=== PATIENT | female | born 1965 | race Caucasian/White ===

== ENCOUNTER 2021-05-25 10:56 | Inpatient (IN) | payer OTHER ==
[~2021-05-25] VITALS: Ht 154.9 cm; Wt 97.1 kg
[2021-05-25] VITALS (10 sets, daily range): BP systolic 93–108; BP diastolic 48–72
--- NOTE | 2021-05-25 11:00 | NUR ---
RAMONE [address] [place] [address] C/O LOW O2 SAT 70% ON RA. PATIENT DOES NOT RESPOND TO VERBAL STIMULI BUT WITHDRAWS TO PAINFUL STIMULI. BS 97mg/dl. PLACED COMFORTABLY IN BED. VITALS CHECKED. PATIENT'S SPO2 94 WITH O2 CANNULA AT4LPM.
--- NOTE | 2021-05-25 11:20 | NUR ---
RAPID COVID SWAB DONE AND SENT TO LAB
--- NOTE | 2021-05-25 11:30 | NUR ---
CARBONATOR AT BEDSIDE
--- NOTE | 2021-05-25 11:50 | NUR ---
CXR AT BEDSIDE.
--- NOTE | 2021-05-25 11:50 | NUR ---
COVID PCR SWAB DONE AND SENT TO LAB
[2021-05-25 11:55] LABS: BASOPHILS # (AUTO) 0.2 K/uL (0.0-0.2); BASOPHILS % (AUTO) 1.2 % (0.0-2.0); EOSINOPHILS % (AUTO) 0.2 % (0.0-6.0); HEMATOCRIT 40 % (33-45); HEMOGLOBIN 12.7 g/dL (11.5-14.8); LYMPHOCYTES # (AUTO) 0.4 K/uL (0.8-4.8); LYMPHOCYTES % (AUTO) 2.3 % (20.0-44.0); MEAN CORPUSCULAR HGB CONC 32 g/dl (31.0-36.0); MEAN CORPUSCULAR VOLUME 78 fL (82-100); MONOCYTES # (AUTO) 1.1 K/uL (0.1-1.30); MONOCYTES % (AUTO) 6.4 % (2.0-12.0); NEUTROPHILS # (AUTO) 15.7 K/uL (1.8-8.9); NEUTROPHILS % (AUTO) 89.9 % (43.0-81.0); PLATELET COUNT (AUTO) 596 K/uL (150-450); RED BLOOD CELL COUNT(AUTO) 5.18 MIL/uL (4.0-5.2); WHITE BLOOD COUNT (AUTO) 17.4 K/uL (4.3-11.0)
[2021-05-25] MEDS ORDERED: GLIP10TA11 PO (11:59)
[2021-05-25] MEDS ORDERED: DULO60CA45 PO (11:59)
[2021-05-25] MEDS ORDERED: ACET-868 PO (11:59)
[2021-05-25] MEDS ORDERED: METF-440 PO (11:59)
[2021-05-25] MEDS ORDERED: TIOT18CA3 IH (11:59)
[2021-05-25] MEDS ORDERED: EYEL50FO2 EACHEYE (11:59)
[2021-05-25] MEDS ORDERED: GABA800T11 PO (11:59)
[2021-05-25] MEDS ORDERED: DOCU250C14 PO (11:59)
[2021-05-25] MEDS ORDERED: OXYC-128 PO (11:59)
[2021-05-25] MEDS ORDERED: BISA10SU11 RC (11:59)
[2021-05-25] MEDS ORDERED: INSU100V39 SQ (11:59)
[2021-05-25] MEDS ORDERED: ESCI5TAB PO (11:59)
[2021-05-25] MEDS ORDERED: NEPA3DRO EACHEYE (11:59)
[2021-05-25] MEDS ORDERED: NA P133E RC (11:59)
[2021-05-25] MEDS ORDERED: CLOB15OI3 TP (11:59)
[2021-05-25] MEDS ORDERED: ALBU8.5H8 IH (11:59)
[2021-05-25] MEDS ORDERED: POLY15DR40 EACHEYE (11:59)
[2021-05-25] MEDS ORDERED: MAGN400O6 PO (11:59)
[2021-05-25] MEDS ORDERED: INSU100V10 SQ (11:59)
--- NOTE | 2021-05-25 12:05 | NUR ---
IFC F16 INSERTED, URINE SPECIMEN SENT TO LAB.
[2021-05-25 12:09] LABS: ALANINE AMINOTRANSFERASE 27 U/L (12-78); ALBUMIN 2.5 g/dL (3.4-5.0); ALKALINE PHOSPHATASE 129 U/L (46-116); ASPARTATE AMINOTRANSFERASE 18 U/L (15-37); BILIRUBIN,DIRECT 0.1 mg/dL (0.0-0.2); BILIRUBIN,TOTAL 0.4 mg/dL (0.2-1.0); CALCIUM, SERUM 8.7 mg/dL (8.5-10.1); CARBON DIOXIDE 23 mmol/L (21-32); CHLORIDE 86 mmol/L (98-107); CREATININE 4.5 mg/dL (0.6-1.3); GLUCOSE 124 mg/dL (74-106); TOTAL PROTEIN, SERUM 8.4 g/dL (6.4-8.2); UREA NITROGEN, BLOOD 55 mg/dL (7-18)
--- NOTE | 2021-05-25 12:09 | NUR ---
URINE SAMPLE COLECTED AND SENT TO LAB
--- NOTE | 2021-05-25 12:10 | NUR ---
SEEN BY DR MALIN AT BEDSIDE.
[2021-05-25 12:23] LABS: SODIUM SERUM 119 mmol/L (136-145)
--- NOTE | 2021-05-25 12:23 | NUR ---
CRITICAL LABS RELAYED TO DR. MALIN. NEW ORDERS TO BE CARRIED OUT.
[2021-05-25 12:24] LABS: POTASSIUM 6.7 mmol/L (3.5-5.1)
[2021-05-25] MEDS ORDERED: PIPERACILLIN /TAZOBACTAM 3.375 G in IV D5W 50 ML IV ONE (12:30)
[2021-05-25] MEDS ORDERED: VANCOMYCIN 1 GM in IV D5W 250 ML IV ONE ×2 (12:30→13:00)
[2021-05-25] MEDS ORDERED: IV NS 0.9% 500 ML BAG IV ONE (12:30)
--- NOTE | 2021-05-25 12:39 | NUR ---
NS 500CC BOLUS STARTED
--- NOTE | 2021-05-25 12:45 | NUR ---
IV ANTIBIOTICS STARTED
[2021-05-25 12:51] LABS: BILIRUBIN,URINE NEGATIVE (NEGATIVE); COLOR,URINE YELLOW (YELLOW); LEUKOCYTE ESTERASE ,URINE NEGATIVE (NEGATIVE); NITRITE, URINE NEGATIVE (NEGATIVE); PH,URINE 5.5 (5.0-8.0); PROTEIN,URINE 100 mg/dl (NEGATIVE); UGLUCOSE NEGATIVE (NEGATIVE); UROBILINOGEN,URINE 0.2 EU/dL (0.2)
[2021-05-25] MEDS ORDERED: ONDANSETRON HCL/PF 4 MG/2 ML VIAL IVP PRN (13:00)
[2021-05-25] MEDS ORDERED: ACETAMINOPHEN 650 MG/20.3 ML UDC NG PRN (13:00)
[2021-05-25] MEDS ORDERED: ACETAMINOPHEN 325 MG TABLET PO PRN (13:00)
[2021-05-25] MEDS ORDERED: ZOLPIDEM TARTRATE 5 MG TABLET PO PRN (13:00)
[2021-05-25] MEDS ORDERED: SODIUM POLYSTYRENE SULF. PWD 15 GM UDC PO ONE (13:00)
[2021-05-25] MEDS ORDERED: ACETAMINOPHEN 650 MG/SUPP.RECT RC PRN (13:00)
[2021-05-25] MEDS ORDERED: Calcium Gluconate 1GM/10ML 4.65 MEQ in IV D5W 50 ML IV ONE (13:00)
[2021-05-25] MEDS ORDERED: IV NS 0.9% 1,000 ML BAG IV ONE (13:00)
[2021-05-25 13:03] LABS: BACTERIA,URINE Moderate /HPF (None Seen)
[2021-05-25 13:04] LABS: SQUAMOUS EPITHELIAL CELL,UR Moderate /HPF (None Seen); WBC,URINE 0-2 /HPF (0-3)
--- NOTE | 2021-05-25 13:23 | NUR ---
INFORMED DR MALIN OF 4.5 CREATININE FOR PULMONARY ANGIOGRAM, SAID "IT'S FINE". MADE RADIOLOGY DEPT AWARE
--- NOTE | 2021-05-25 13:45 | NUR ---
SEEN BY MANAGER DISTRIBUTION CENTER DR CARNEY AT ER. RT CALLED TO DO ABG
--- NOTE | 2021-05-25 13:55 | NUR ---
dr portillo called and authorized the patient to stay here
--- NOTE | 2021-05-25 14:00 | NUR ---
ABG DONE AT BEDSIDE.
--- NOTE | 2021-05-25 14:39 | NUR ---
CALLED GERMAIN FROM RADIOLOGY. EXPLAINED TO HIM PATIENT IS REALLY A HARD STICK. I HAVE 2 LINES LEFT WRIST G20 AND RIGHT HAND G20. SPOKE TO DR MALIN HE SAID TO DO THE CT SCAN WITHOUT CONTRAST AT THE MOMENT. MIDLINE NURSE WILL COME 7PM TO PUT LINE ON PATIENT.
--- NOTE | 2021-05-25 14:41 | NUR ---
PATIENT WHEELED OUT VIA GURNEY FOR CT SCAN
--- NOTE | 2021-05-25 14:41 | NUR ---
TANYAED PT TO CT SCAN DEPT.
[2021-05-25 15:19] LABS: ABG BASE EXCESS -6.3 mmol/L; ABG PCO2 56.6 mmHg (35.0-45.0); ABG PO2 106.4 mmHg (75.0-100.0); COHb 0.4 % (0.5-1.5); MetHb 0.5 % (0.0-1.5); O2Hb 96.2 % (94.0-97.0); SITE, ABG Left Radial
--- NOTE | 2021-05-25 15:19 | NUR ---
REPORT GIVEN TO MELODIE CARNEY.
--- NOTE | 2021-05-25 15:38 | NUR ---
RN/ICUADMITTED THIS 55 Y/O FEMALE FROM ER PER ACLS PROTOCOL. DX:ACUTE RESPIRATORY FAILURE, PNA AND ACUTE RENAL FAILURE. ROUTINE ICU ADMISSION CARE INITIATED. PT. COVID 19 PCR PENDING, COVID RAPID IS NEGATIVE, ON CONTACT ISOLATION FOR NOW. PT. IS AWAKE, ORIENTED ONLY TO SELF, NAME,FOLLOWS SIMPLE COMMANDS . EKG SR W/ HR-93/MIN. BP-109/64. ON 4L/NC, SATS.-93%. DENIES PAIN OR DISTRESS, WILL CONTINUE TO MONITOR AND WILL REFER ACCORDINGLY NEEDED. PT. IS A FULL CODE. PT. IS FOR MIDLINE INSERTION. AWAITING FOR PICC RN.
--- NOTE | 2021-05-25 15:53 | NUR ---
TRANSFERRED PATIENT TO ICU
[2021-05-25] MEDS: HEPARIN SODIUM, PORCINE 5000 UNITS/1 ML VIAL SQ SCH (16:57)
--- NOTE | 2021-05-25 17:50 | NUR ---
RN/ICU-DR. PARADA TO SEE PT, ASSESSED PT. SPOKE TO DR VASQUEZ REGARDING POSSIBLILTY OF AIR IN ABDOMEN, WILL COME AND SEE PT TONIGHT.
--- NOTE | 2021-05-25 18:00 | NUR ---
RN/ICU-FOR NGT INSERTION . WILL FOLLOW UP.
[2021-05-25] MEDS: PIPERACILLIN /TAZOBACTAM 3.375 G in IV D5W 50 ML IV SCH ×2 (18:01→23:58)
[2021-05-25] MEDS: IV D5/ 0.9% NACL 1,000 ML IV PRN (18:02)
--- NOTE | 2021-05-25 18:30 | NUR ---
RN/ICU- FOR BMP AT 1900. WILL RELAY RESULT TO HOSPITALIST GYMNASTICS COACH OR INSTRUCTOR.
--- NOTE | 2021-05-25 19:30 | NUR ---
RN NOTE PATIENT RESTING IN BED, ALERT AND ORIENTED X1. ON O2 3L VIA NASAL CANNULA, NO S/S OF RESPIRATORY DISTRESS. DENIES ANY PAIN OR DISCOMFORT. JARA CATH IN PLACE, DRAINING URINE VIA GRAVITY. IV ACCESS ON LEFT WRIST #20 AND RIGHT HAND # 20 PATENT AND INTACT, INFUSING D5NS @ 80ML/HR. NO S/S OF INFILTRATION. BED LOCKED AND IN LOWEST POSITION. CALL LIGHT WITHIN REACH. ALL NEEDS ANTICIPATED.
[2021-05-25 19:38] LABS: CALCIUM, SERUM 7.8 mg/dL (8.5-10.1); CREATININE 4.4 mg/dL (0.6-1.3)
--- NOTE | 2021-05-25 20:23 | NUR ---
RN NOTE RELAYED BMP RESULT TO DR. FRED STEWART, K-6.0 WITH NEW ORDERS RECEIVED NOTED AND CARRIED OUT.
[2021-05-25] MEDS ORDERED: SODIUM POLYSTYRENE SULFONATE 15 G/60 ML BOTTLE PO ONE (20:30)
[2021-05-25] MEDS ORDERED: INSULIN DETEMIR 24 UNIT SQ SCH (22:00)
--- NOTE | 2021-05-25 22:15 | NUR ---
RN NOTE NG TUBE PLACED RIGHT NARE AT 65CM. POSITIVE PLACEMENT CONFIRMED VIA AUSCULTATION, CONFORMED WITH ROMMEL CHARGE NURSE.
[2021-05-25] MEDS ORDERED: DEXTROSE 50%-WATER 50 ML DISP.SYRIN IVP STA (22:58)
[2021-05-25] MEDS: INSULIN GLARGINE, 100 UNIT/ML CARTRIDGE SQ SCH (22:58)
[2021-05-26] VITALS (79 sets, daily range): BP systolic 75–159; BP diastolic 45–88
--- NOTE | 2021-05-26 00:23 | NUR ---
RN NOTE DR. FRED STEWART AWARE OF PATIENT'S BLOOD SUGAR THIS EVENING 56 AND [address] FRED STEWART PATIENT'S BLOOD PRESSURE 85/55, 83/54. WITH NO NEW ORDERS AT THIS TIME. CONTINUE TO MONITOR. CHARGE NURSE ROMMEL AWARE.
[2021-05-26 04:03] LABS: BASOPHILS % (AUTO) 0.2 % (0.0-2.0); EOSINOPHILS % (AUTO) 0.7 % (0.0-6.0); HEMATOCRIT 35 % (33-45); HEMOGLOBIN 10.9 g/dL (11.5-14.8); LYMPHOCYTES # (AUTO) 0.8 K/uL (0.8-4.8); LYMPHOCYTES % (AUTO) 4.6 % (20.0-44.0); MEAN CORPUSCULAR HGB CONC 31 g/dl (31.0-36.0); MEAN CORPUSCULAR VOLUME 78 fL (82-100); MONOCYTES # (AUTO) 1.8 K/uL (0.1-1.30); MONOCYTES % (AUTO) 10.5 % (2.0-12.0); NEUTROPHILS # (AUTO) 14.3 K/uL (1.8-8.9); PLATELET COUNT (AUTO) 468 K/uL (150-450); RED BLOOD CELL COUNT(AUTO) 4.52 MIL/uL (4.0-5.2)
[2021-05-26 04:20] LABS: BILIRUBIN,TOTAL 0.4 mg/dL (0.2-1.0); CALCIUM, SERUM 7.8 mg/dL (8.5-10.1); CREATININE 4.8 mg/dL (0.6-1.3); POTASSIUM 5.3 mmol/L (3.5-5.1); TOTAL PROTEIN, SERUM 6.9 g/dL (6.4-8.2)
[2021-05-26] MEDS ORDERED: DEXTROSE 50%-WATER 50 ML DISP.SYRIN IVP ONE (05:00)
--- NOTE | 2021-05-26 05:49 | NUR ---
RN NOTE PATIENT'S GLUCOSE 50 AND TROPONIN 137.3. RECHECKED BLOOD SUGAR 58. DR. FRED STEWART MADE AWARE WITH NEW ORDERS NOTED AND CARRIED OUT. ALSO MADE MD AWARE OF PATIENTS NA, K, AND URINE OUTPUT 30CC THROUGH OUT SHIFT.
[2021-05-26] MEDS ORDERED: DEXTROSE 50%-WATER 50 ML DISP.SYRIN IVP PRN (06:00)
[2021-05-26] MEDS: PIPERACILLIN /TAZOBACTAM 3.375 G in IV D5W 50 ML IV SCH ×3 (06:16→17:09)
[2021-05-26] MEDS: IV D5/ 0.9% NACL 1,000 ML IV PRN ×2 (06:21→19:28)
--- NOTE | 2021-05-26 07:10 | NUR ---
RN NOTE PATIENT RESTING IN BED, ALERT AND ORIENTED X1. ON O2 2L VIA NASAL CANNULA. POOR OUTPUT FROM JARA CATH, 30CC. IV ACCESS ON LEFT WRIST #20, RIGHT HAND # 20, AND JOVANNY MIDLINE #18 PATENT AND INTACT, INFUSING D5NS @ 80ML/HR. NO S/S OF INFILTRATION. HAD BM X3, KEPT CLEAN AND DRY. TURNED AND REPOSITIONED. BED LOCKED AND IN LOWEST POSITION. CALL LIGHT WITHIN REACH. ENDORSED TO AM SHIFT.
--- NOTE | 2021-05-26 07:10 | NUR ---
RN NOTE RECEIVED PT ON BED ALERT AND ORIENTED X1. ON O2 2L VIA NASAL CANNULA, NO S/S OF RESPIRATORY DISTRESS. DENIES ANY PAIN OR DISCOMFORT. JARA CATH IN PLACE, DRAINING URINE VIA GRAVITY. IV ACCESS ON LEFT WRIST #20 AND RIGHT HAND # 20 PATENT AND INTACT, INFUSING D5NS @ 80ML/HR. NO S/S OF INFILTRATION. NGT ATTACHED TO LIS , NO DRAINAGE NOTED , BED LOCKED AND IN LOWEST POSITION. CALL LIGHT WITHIN REACH. WILL CONTINUE TO MONITOR
[2021-05-26] MEDS: PANTOPRAZOLE 40 MG VIAL IV SCH (08:12)
[2021-05-26] MEDS: HEPARIN SODIUM, PORCINE 5000 UNITS/1 ML VIAL SQ SCH ×2 (08:13→17:06)
[2021-05-26] MEDS: VANCOMYCIN 1 GM in IV D5W 250ml IV SCH (09:24)
[2021-05-26 12:04] LABS: THYROID STIMULATING HORMONE 0.766 uIU/mL (0.358-3.74)
--- NOTE | 2021-05-26 12:04 | NUR ---
RN NOTES BG 48 , NO SIGNS AND SYMPTOMS OF HYPOGLYCEMIA NOTED , SBP IN 80'S , DR JERONIMO NOTIFIED , D50 IV x 1 AMP AND LEVO DRIP ORDERED , CONTINUE TO MONITOR.
[2021-05-26 12:12] LABS: ABG BASE EXCESS -9.8 mmol/L; ABG OXYGEN SATURATION 95.6 % (92.0-98.5); ABG PCO2 52.7 mmHg (35.0-45.0); ABG PH 7.169 (7.350-7.450); ABG PO2 86.7 mmHg (75.0-100.0); AaDO2 50.8 mmHg; COHb 1.2 % (0.5-1.5); MetHb 0.2 % (0.0-1.5); O2Hb 94.3 % (94.0-97.0); SITE, ABG Right Radial; VENT MODE, BG 2 liters nasal cannula
[2021-05-26] MEDS: BLOOD SUGAR DIAGNOSTIC 1 EACH STRIP IN SCH ×2 (12:52→17:12)
[2021-05-26 13:01] LABS: CALCIUM, SERUM 7.3 mg/dL (8.5-10.1); CREATININE 5.3 mg/dL (0.6-1.3); POTASSIUM 5.2 mmol/L (3.5-5.1)
[2021-05-26] MEDS: NOREPINEPHRINE 8 MG in IV NS 0.9% 242 ML IV PRN (13:39)
[2021-05-26 14:59] LABS: ABG BASE EXCESS -10.1 mmol/L; ABG OXYGEN SATURATION 92.3 % (92.0-98.5); ABG PCO2 62.4 mmHg (35.0-45.0); ABG PH 7.119 (7.350-7.450); COHb 0.8 % (0.5-1.5); MetHb 0.3 % (0.0-1.5); O2Hb 91.3 % (94.0-97.0); SITE, ABG Left Radial; VENT MODE, BG 18/5 r15 28%
--- NOTE | 2021-05-26 15:35 | NUR ---
RN NOTES PT IS LETHARGIC , DOES NOT FOLLOW COMMAND, DR CARNEY NOTIFIED REGARDING ABG RESULTS , ORDER RECEIVED TO INTUBATE PT . CONTINUE TO MONITOR.
--- NOTE | 2021-05-26 15:41 | NUR ---
RT PATIENT ORALLY INTUBATED WITH 7.5 ETT SECURED AT 23CM AT THE LIP. VENT SETTINGS SET PER DR CARNEY. POSITIVE CO2 DETECTOR COLOR CHANGE. BILAT BREATH SOUNDS HEARD. BILAT CHEST RISE NOTED. AMBU BAG AT HOB Addendum: 05/26/21 at 1545 by HIRAM BOSS RT Amended: Links added.
--- NOTE | 2021-05-26 15:50 | NUR ---
RN NOTES DR JERONIMO AT THE BEDSIDE, R NECK HD CATH INSERTED BY DR JERONIMO, CONTINUE TO MONITOR .
[2021-05-26] MEDS: PROPOFOL 100 ML IV PRN ×2 (15:59→22:21)
--- NOTE | 2021-05-26 16:11 | NUR ---
RT PER MD ORDER ETT PULLED BACK 2CM AND SECURED AT 21CM TOP LIP. Addendum: 05/26/21 at 1611 by HIRAM BOSS RT Amended: Links added.
[2021-05-26 17:06] LABS: ABG BASE EXCESS -9.2 mmol/L; ABG PCO2 30.8 mmHg (35.0-45.0); ABG PH 7.324 (7.350-7.450); ABG PO2 107.8 mmHg (75.0-100.0); AaDO2 69.9 mmHg; MetHb 0.3 % (0.0-1.5); O2Hb 96.7 % (94.0-97.0); SITE, ABG Right Radial
[2021-05-26] MEDS ORDERED: ROCURONIUM BROMIDE 50 MG/5 ML IV ONE (18:15)
[2021-05-26] MEDS ORDERED: ETOMIDATE 2 MG/ML VIAL IV ONE (18:15)
--- NOTE | 2021-05-26 18:34 | NUR ---
RN NOTES PT REMAINS INTUBATED AND SEDATED , ON PROPOFOL AT 15MCG/KG/MIN, TOLERATED VENT SETTING WELL, NO DISTESS NOTED, ON TELE SR HR IN 80'S , NGT TO LIS, LEVO AT .04 MCG/KG/MIN FOR BP SUPPORT, IVF D5NS AT 125CC/HR RUNNING VIA R UPPER ARM MIDLINE . SR UP x3, CALL LIGHT WITHIN EASY REACH, BED LOCKED AND IN LOWEST POSITION, WILL ENDORSE TO TIME STUDY ENGINEER NURSE FOR CONTINUITY OF CARE .
[2021-05-26] MEDS: INSULIN GLARGINE, 100 UNIT/ML CARTRIDGE SQ SCH (21:57)
[2021-05-27] VITALS (95 sets, daily range): BP systolic 80–152; BP diastolic 22–81
[2021-05-27] MEDS: PIPERACILLIN /TAZOBACTAM 3.375 G in IV D5W 50 ML IV SCH ×5 (00:03→23:58)
[2021-05-27] MEDS: BLOOD SUGAR DIAGNOSTIC 1 EACH STRIP IN SCH ×5 (00:05→23:37)
[2021-05-27] MEDS: PROPOFOL 100 ML IV PRN ×5 (03:48→21:13)
[2021-05-27] MEDS: IV D5/ 0.9% NACL 1,000 ML IV PRN ×3 (03:49→21:12)
[2021-05-27 05:10] LABS: BASOPHILS # (AUTO) 0.1 K/uL (0.0-0.2); BASOPHILS % (AUTO) 0.5 % (0.0-2.0); EOSINOPHILS % (AUTO) 1.2 % (0.0-6.0); HEMATOCRIT 35 % (33-45); HEMOGLOBIN 10.9 g/dL (11.5-14.8); LYMPHOCYTES # (AUTO) 1.4 K/uL (0.8-4.8); LYMPHOCYTES % (AUTO) 5.8 % (20.0-44.0); MEAN CORPUSCULAR HGB CONC 31 g/dl (31.0-36.0); MEAN CORPUSCULAR VOLUME 77 fL (82-100); MONOCYTES # (AUTO) 2.7 K/uL (0.1-1.30); MONOCYTES % (AUTO) 11.3 % (2.0-12.0); NEUTROPHILS # (AUTO) 19.4 K/uL (1.8-8.9); NEUTROPHILS % (AUTO) 81.2 % (43.0-81.0); PLATELET COUNT (AUTO) 515 K/uL (150-450); RED BLOOD CELL COUNT(AUTO) 4.53 MIL/uL (4.0-5.2); WHITE BLOOD COUNT (AUTO) 23.9 K/uL (4.3-11.0)
[2021-05-27 05:19] LABS: CALCIUM, SERUM 7.2 mg/dL (8.5-10.1); CREATININE 4.6 mg/dL (0.6-1.3); MAGNESIUM 1.8 mg/dL (1.8-2.4); PHOSPHORUS 4.8 mg/dL (2.5-4.9); POTASSIUM 3.5 mmol/L (3.5-5.1)
[2021-05-27] MEDS: NOREPINEPHRINE 8 MG in IV NS 0.9% 242 ML IV PRN (06:44)
[2021-05-27 08:48] LABS: ABG OXYGEN SATURATION 96.8 % (92.0-98.5); ABG PCO2 28.8 mmHg (35.0-45.0); ABG PH 7.385 (7.350-7.450); ABG PO2 97.1 mmHg (75.0-100.0); COHb 0.6 % (0.5-1.5); MetHb 0.1 % (0.0-1.5); O2Hb 96.1 % (94.0-97.0); SITE, ABG Right Radial
[2021-05-27] MEDS: PANTOPRAZOLE 40 MG VIAL IV SCH (08:52)
[2021-05-27] MEDS: HEPARIN SODIUM, PORCINE 5000 UNITS/1 ML VIAL SQ SCH ×2 (08:56→16:46)
--- NOTE | 2021-05-27 19:05 | NUR ---
NO SIGNIFICANT CHANGES NOTED AT THIS TIME; PT. COMFORTABLY ON BED;ENDORSED TO NIK-MELODIE FOR CONTINUITY OF CARE.
--- NOTE | 2021-05-27 20:00 | NUR ---
ICU NOTES Received patient sedated and intubated to mechanical vent on AC modes.DX: Acte RESPIRATORY FAILURE,PNA,ACUTE RENAL FAILURE.Sedated on Diprivan gtt at 35 mcg.SR 60's on Levophed gtt at 0.04 mcg for BP support and will titrate accordingly.NPO with R ngt to LIS no output at this time.IVF infusing well.FC to gravity. No acute distress noted.Turned and repositioned.
[2021-05-27] MEDS: INSULIN GLARGINE, 100 UNIT/ML CARTRIDGE SQ SCH (22:01)
[2021-05-28] VITALS (75 sets, daily range): BP systolic 78–148; BP diastolic 41–75
[2021-05-28] MEDS: NOREPINEPHRINE 8 MG in IV NS 0.9% 242 ML IV PRN (00:26)
[2021-05-28] MEDS: PROPOFOL 100 ML IV PRN ×2 (01:51→06:36)
[2021-05-28 04:09] LABS: BASOPHILS % (AUTO) 0.3 % (0.0-2.0); EOSINOPHILS % (AUTO) 2.4 % (0.0-6.0); HEMATOCRIT 32 % (33-45); HEMOGLOBIN 10.1 g/dL (11.5-14.8); LYMPHOCYTES # (AUTO) 1.4 K/uL (0.8-4.8); LYMPHOCYTES % (AUTO) 7.6 % (20.0-44.0); MEAN CORPUSCULAR HGB CONC 31 g/dl (31.0-36.0); MEAN CORPUSCULAR VOLUME 76 fL (82-100); MONOCYTES # (AUTO) 2.3 K/uL (0.1-1.30); MONOCYTES % (AUTO) 12.6 % (2.0-12.0); NEUTROPHILS # (AUTO) 14.1 K/uL (1.8-8.9); NEUTROPHILS % (AUTO) 77.1 % (43.0-81.0); PLATELET COUNT (AUTO) 374 K/uL (150-450); RED BLOOD CELL COUNT(AUTO) 4.26 MIL/uL (4.0-5.2); WHITE BLOOD COUNT (AUTO) 18.3 K/uL (4.3-11.0)
[2021-05-28 04:12] LABS: CALCIUM, SERUM 7.2 mg/dL (8.5-10.1); MAGNESIUM 1.7 mg/dL (1.8-2.4); PHOSPHORUS 4.4 mg/dL (2.5-4.9); POTASSIUM 2.9 mmol/L (3.5-5.1)
[2021-05-28] MEDS: BLOOD SUGAR DIAGNOSTIC 1 EACH STRIP IN SCH ×3 (05:33→17:52)
[2021-05-28] MEDS: PIPERACILLIN /TAZOBACTAM 3.375 G in IV D5W 50 ML IV SCH ×3 (05:33→17:47)
[2021-05-28] MEDS: IV D5/ 0.9% NACL 1,000 ML IV PRN ×3 (05:54→23:36)
--- NOTE | 2021-05-28 06:15 | NUR ---
ICU NOTES Patient resting in no acute distress.Vital signs remains stable..SR.Tolerating vent settings.Diprivan gtt infusing at 35 mcg,Levophed infusing at 0.04 mcg.AM care done.Blood sugar monitored Q 6Hhrs. No coverage ordered.will endorse to day shift for further care and management.
--- NOTE | 2021-05-28 07:15 | NUR ---
STAFF ACCOUNTANT Bedside report taken from [facility] nurse Phuc SEWELL. pt sedated and intubated. pt perrla. pt does not open eyes or follow commands. pt w/d bue and ble to painful stimuli. pt has ngt to low intermittent suction. pt NSR on monitor, sbp wnl. pt lung sounds diminished. abdomen soft rounded , bowel sounds present. pt has salvador intact and draining clear yellow urine. skin check done, wounds assessed. all lines traced all drips verified. safety meaures in place. will continue to monitor.
[2021-05-28] MEDS: PANTOPRAZOLE 40 MG VIAL IV SCH (08:12)
[2021-05-28] MEDS: HEPARIN SODIUM, PORCINE 5000 UNITS/1 ML VIAL SQ SCH ×2 (08:13→17:47)
--- NOTE | 2021-05-28 08:45 | NUR ---
SKIP HOIST OPERATOR Dr Leigh at bedside assessing pt and updated on pt status. md aware that pt k 2.9 and mg 1.7, new verbal orders entered per md and verified with charge nurse Lory SEWELL. sedation vacation order today per md. no other orders at this time.
[2021-05-28] MEDS: VANCOMYCIN 1 GM in IV D5W 250ml IV SCH (09:00)
[2021-05-28] MEDS ORDERED: DC PROPOFOL WHEN EXTUBATED XX PRN (09:00)
--- NOTE | 2021-05-28 09:08 | NUR ---
SHREDDED FILLER MACHINE WRAPPER LAYER Spoke to Destiny from pharmacy, informed that vanco trough 21, hold 9 am dose of vancomycin at this time per pharmacy. charge nurse Lory bowen.
[2021-05-28] MEDS: Magnesium 1GM/D5W 100ML PREMIX 100 ML IV SCH ×2 (09:30→10:12)
--- NOTE | 2021-05-28 09:48 | NUR ---
PRODUCT INSPECTION SUPERVISOR Pt had BM x1 bathed and cleaned. skin check done with Anitha SEWELL, no new wounds noted. Propofol off, sedation vacation started. safety meaures in place. will continue to monitor.
--- NOTE | 2021-05-28 10:33 | NUR ---
HEALTH AND HUMAN PERFORMANCE PROFESSOR Dr Leigh at bedside assessing pt and updated on pt status. aware that pt off sedation, ok to wean, Nuria MCFARLAND aware. weaning pending.
[2021-05-28] MEDS: POTASSIUM CL. PREMIX PERIPHER. 50 ML IV SCH ×3 (11:02→12:59)
[2021-05-28 11:30] LABS: ABG BASE EXCESS -5.8 mmol/L; ABG OXYGEN SATURATION 97.4 % (92.0-98.5); ABG PCO2 33.1 mmHg (35.0-45.0); ABG PH 7.369 (7.350-7.450); COHb 0.2 % (0.5-1.5); MetHb 0.2 % (0.0-1.5); PEEP,BG 5 cm H2O; SITE, ABG Right Radial; VENT MODE, BG SIMV 4 PSV 15
--- NOTE | 2021-05-28 11:35 | NUR ---
FREQUENCY CHECKER ABG completed, pt tolerating weaning. Dr Leigh at bedside. Pt extubated per MD order. pt awake, alert and oriented and talking, follows commands. pt placed on 3 L n/c. pt tolerating well. paul wrist restraints removed. vitals stable. will continue to monitor.
--- NOTE | 2021-05-28 11:35 | NUR ---
PT EXTUBATED PER MD ORDER. PLACED ON 3LP, N/C B/S EQUA. PT ABLE TO FALLOW COMMANDS
[2021-05-28 16:56] LABS: POTASSIUM 3.8 mmol/L (3.5-5.1)
[2021-05-28 16:57] LABS: CREATININE 3.4 mg/dL (0.6-1.3)
--- NOTE | 2021-05-28 19:08 | NUR ---
QUALITY COMPLIANCE COORDINATOR Bedside report given to [facility] nurse Wesley SEWELL. Pt awake, alert, on 3 L n/c tolerating well and resting comfortable in bed. all lines traced. all drips verified. pt clean and dry. safety measures in place. no signs of acute distress at this time.
--- NOTE | 2021-05-28 19:30 | NUR ---
RN NOTES RECEIVED CARE OF PATIENT FROM AM NURSE WHILE PATIENT IN BED, A/O X4, ABLE TO MAKE NEEDS KNOWN, PATIENT IN NO DISCOMFORT OR PAIN AT THIS TIME. PATIENT ON ROOM AIR, O2 SAT 96%, BREATHING EVEN AND UNLABORED. PATIENT ON TELE MONITOR SHOWING NSR WITH HR OF 71, NO DISTRESS NOTED. JARA CATH PATENT, DARNING YELLOW URINE. NGT NOTED, PATENT AND POSITIVE PLACEMENT CONFIRMED BY AUSCULTATION, WITH SUCTION ORDERED. SAFETY MEASURES IMPLEMENTED PER HOSPITAL PROTOCOLS. WILL CONTINUE TO MONITOR PATIENT.
[2021-05-28] MEDS: INSULIN GLARGINE, 100 UNIT/ML CARTRIDGE SQ SCH (23:00)
[2021-05-29] VITALS (95 sets, daily range): BP systolic 78–156; BP diastolic 46–93
[2021-05-29] MEDS: NOREPINEPHRINE 8 MG in IV NS 0.9% 242 ML IV PRN (00:06)
[2021-05-29] MEDS: PIPERACILLIN /TAZOBACTAM 3.375 G in IV D5W 50 ML IV SCH ×5 (00:07→23:43)
[2021-05-29] MEDS ORDERED: NOREPINEPHRINE 8MG/250ML RTU 250 ML IV ONE (00:09)
[2021-05-29] MEDS: BLOOD SUGAR DIAGNOSTIC 1 EACH STRIP IN SCH ×4 (00:22→17:22)
[2021-05-29 04:38] LABS: BASOPHILS % (AUTO) 0.2 % (0.0-2.0); EOSINOPHILS % (AUTO) 2.3 % (0.0-6.0); HEMATOCRIT 32 % (33-45); HEMOGLOBIN 9.8 g/dL (11.5-14.8); LYMPHOCYTES # (AUTO) 0.7 K/uL (0.8-4.8); LYMPHOCYTES % (AUTO) 4.3 % (20.0-44.0); MEAN CORPUSCULAR HGB CONC 31 g/dl (31.0-36.0); MEAN CORPUSCULAR VOLUME 77 fL (82-100); MONOCYTES # (AUTO) 1.8 K/uL (0.1-1.30); MONOCYTES % (AUTO) 11.8 % (2.0-12.0); NEUTROPHILS # (AUTO) 12.6 K/uL (1.8-8.9); NEUTROPHILS % (AUTO) 81.4 % (43.0-81.0); PLATELET COUNT (AUTO) 328 K/uL (150-450); RED BLOOD CELL COUNT(AUTO) 4.08 MIL/uL (4.0-5.2); WHITE BLOOD COUNT (AUTO) 15.5 K/uL (4.3-11.0)
[2021-05-29 05:08] LABS: CALCIUM, SERUM 7.1 mg/dL (8.5-10.1); CREATININE 3.6 mg/dL (0.6-1.3); MAGNESIUM 2.1 mg/dL (1.8-2.4); PHOSPHORUS 6.1 mg/dL (2.5-4.9); POTASSIUM 3.3 mmol/L (3.5-5.1)
--- NOTE | 2021-05-29 07:00 | NUR ---
RN NOTES RECEIVED PT ON BED, A/Ox2-3, FOLLOWS COMMAND, ABLE TO MAKE NEEDS KNOWN, ON 3L O2 N/C , O2 SAT WNL, PATIENT ON TELE MONITOR SHOWING NSR WITH HR OF 70'S, NO DISTRESS NOTED. JARA CATH PATENT, DRAINING YELLOW URINE. NGT NOTED TO LIS , SAFETY MEASURES IMPLEMENTED PER HOSPITAL PROTOCOLS. SR UP x3, CALL LIGHT WITHIN EASY REACH, WILL CONTINUE TO MONITOR PATIENT.
--- NOTE | 2021-05-29 07:16 | NUR ---
RN NOTES ENDORSED CARE OF PATIENT TO AM NURSE WHILE PATIENT IN BED, A/O X4, ABLE TO MAKE NEEDS KNOWN. ALL PATIENT NEEDS MET THROUGHOUT SHIFT. PATIENT ON 3 L/MIN O2 THERAPY VIA NC, O2 SAT 98%, BREATHING EVEN AND UNLABORED. PATIENT CURRENTLY ON LEVO DRIP AT 0.02 MCG/KG/MIN, VITAL SIGNS REMAIN WITHIN ORDERED LIMITS. ALL DUE MEDS GIVEN. ALL SAFETY MEASURES IMPLEMENTED PER HOSPITAL PROTOCOLS. ENDORSED TO AM NURSE FOR ARAVIND.
[2021-05-29] MEDS ORDERED: POTASSIUM CHLORIDE 20 MEQ POWDER PACKET NG SCH (08:00)
[2021-05-29] MEDS: HEPARIN SODIUM, PORCINE 5000 UNITS/1 ML VIAL SQ SCH ×2 (08:07→16:58)
[2021-05-29] MEDS: PANTOPRAZOLE 40 MG VIAL IV SCH (08:07)
[2021-05-29] MEDS: POTASSIUM CL. PREMIX PERIPHER. 50 ML IV SCH ×4 (08:07→11:47)
[2021-05-29] MEDS: IV D5/ 0.9% NACL 1,000 ML IV PRN ×2 (09:43→23:58)
[2021-05-29] MEDS ORDERED: NOREPINEPHRINE 8 MG in IV NS 0.9% 242 ML IV PRN (11:00)
[2021-05-29] MEDS ORDERED: DEXTROSE 50%-WATER 50 ML DISP.SYRIN IV PRN (12:00)
[2021-05-29] MEDS ORDERED: BLOOD SUGAR DIAGNOSTIC 1 EACH STRIP IN SCH (12:00)
[2021-05-29] MEDS: INSULIN REGULAR, HUMAN 100 UNIT/ML 3 ML VIAL SQ PRN ×2 (12:14→17:15)
--- NOTE | 2021-05-29 13:00 | NUR ---
RN NOTES NGT TO LIS , PT IS VERY SENSITIVE TO LEVO , LEVO DRIP AT .01 MCG/KG/MIN, CONTINUE TO MONITOR. .
[2021-05-29] MEDS ORDERED: DIATR MEGLU/DIATRIZOATE SODIUM 30 ML BOTTLE (GASTROGRAPHIN) ONE (18:02)
--- NOTE | 2021-05-29 18:15 | NUR ---
RN NOTES PT REMAINS ON LEVO AT .01 MCG/KG/MIN. PO CONTRAST GIVEN VIA NGT. NO DISTESS NOTED, PT WAITING FOR CT OF ABD TO BE DONE, NO SIGNIFICANT CHANGES NOTED ON THIS SHIFT , WILL ENDORSE TO BUILDING MATERIALS SALES ATTENDANT NURSE FOR CONTINUITY OF CARE .
--- NOTE | 2021-05-29 19:31 | NUR ---
RN NOTES RECEIVED CARE OF PATIENT FROM AM NURSE WHILE PATIENT IN BED, A/O X4, ABLE TO MAKE NEEDS KNOWN, PATIENT IN NO DISCOMFORT OR PAIN AT THIS TIME. PATIENT ON O2 THERAPY VIA NC AT 3L/MIN, O2 SAT 99%, BREATHING EVEN AND UNLABORED. PATIENT ON TELE MONITOR SHOWING NSR WITH HR OF 78, NO DISTRESS NOTED. JARA CATH PATENT, DARNING YELLOW URINE. PATIENT ON LEVO RUNNING AT 0.01 MCG/KG/MIN, LATEST BP IS 101/60, PATIENT IN NO DISTRESS. PATIENT AWAITING TRANSFER TO CT SCAN. SAFETY MEASURES IMPLEMENTED PER HOSPITAL PROTOCOLS. WILL CONTINUE TO MONITOR PATIENT.
--- NOTE | 2021-05-29 20:30 | NUR ---
RN NOTES PATIENT SENT AND RETURNED FROM CT SCAN IN STABLE CONDITIONS VIA ACLS PROTOCOLS. PATIENT IS CURRENTLY IN BED, A/O X4, WITH NO SIGNIFICANT NURSING FINDINGS AFTER RETURNING FROM CT SCAN. ALL IMMEDIATE PATIENT NEEDS MET. WILL CONTINUE TO MONITOR.
[2021-05-29] MEDS: INSULIN GLARGINE, 100 UNIT/ML CARTRIDGE SQ SCH (22:53)
[2021-05-30] VITALS (85 sets, daily range): BP systolic 81–140; BP diastolic 39–95
[2021-05-30] MEDS: INSULIN REGULAR, HUMAN 100 UNIT/ML 3 ML VIAL SQ PRN ×3 (00:42→23:18)
[2021-05-30] MEDS: BLOOD SUGAR DIAGNOSTIC 1 EACH STRIP IN SCH ×5 (00:43→23:14)
[2021-05-30 04:36] LABS: BASOPHILS % (AUTO) 0.2 % (0.0-2.0); EOSINOPHILS % (AUTO) 1.2 % (0.0-6.0); HEMATOCRIT 32 % (33-45); HEMOGLOBIN 9.6 g/dL (11.5-14.8); LYMPHOCYTES # (AUTO) 0.8 K/uL (0.8-4.8); LYMPHOCYTES % (AUTO) 4.4 % (20.0-44.0); MEAN CORPUSCULAR HGB CONC 31 g/dl (31.0-36.0); MEAN CORPUSCULAR VOLUME 79 fL (82-100); MONOCYTES # (AUTO) 2.2 K/uL (0.1-1.30); MONOCYTES % (AUTO) 12.4 % (2.0-12.0); NEUTROPHILS # (AUTO) 14.6 K/uL (1.8-8.9); NEUTROPHILS % (AUTO) 81.8 % (43.0-81.0); PLATELET COUNT (AUTO) 299 K/uL (150-450); RED BLOOD CELL COUNT(AUTO) 3.99 MIL/uL (4.0-5.2); WHITE BLOOD COUNT (AUTO) 17.8 K/uL (4.3-11.0)
[2021-05-30 04:57] LABS: CALCIUM, SERUM 7.3 mg/dL (8.5-10.1); MAGNESIUM 2.2 mg/dL (1.8-2.4); PHOSPHORUS 7.7 mg/dL (2.5-4.9); POTASSIUM 4.2 mmol/L (3.5-5.1)
[2021-05-30] MEDS: PIPERACILLIN /TAZOBACTAM 3.375 G in IV D5W 50 ML IV SCH (05:36)
--- NOTE | 2021-05-30 06:45 | NUR ---
RN NOTES PATIENT REMAINS IN BED, SLEEPING, WAKES UP TO NAME. PATIENT A/O X4, ABLE TO MAKE NEEDS KNOWN. ALL PATIENT NEEDS MET THROUGHOUT SHIFT. ALL DUE MED GIVEN. PATIENT REMAINS ON LEVO DRIP RUNNING AT 0.01 MCG/KG/MIN, VITAL SINGS REMAIN WITHIN ORDERED PARAMETERS. NO SIGNIFICANT FINDINGS UPON ALL NURSING ASSESSMENTS. ALL SAFETY MEASURES IMPLEMENTED THROUGHOUT SHIFT ACCORDING TO HOSPITAL PROTOCOLS. WILL ENDORSE TO AM NURSE FOR CONTINUITY OF CARE.
--- NOTE | 2021-05-30 08:00 | NUR ---
RN NOTES PATIENT RECEIVED IN THE BED A/A/OX3, ON E15E-YY-93%, HR- 70. PATIENT REFUSED PAIN, NGT INTERMITTENT SUCTIONING , NO OUTPUT AT THIS TIME. INFUSING LEVOPHED 0.01 MCG/KG/HR, AND D5NS @125ML/HR ON JOVANNY MIDLINE INTACT. PATIENT OBESE, DISTENDED ABDOMEN. BED BOUND, JARA DRAINING LOW OUTPUT. ASSIST TURN AND REPOSTION Q 2 HR, AM MEDICATION ADMINISTERED. ASSIST TURN AND REPOSTION. PER Dr RYAN ORDER PATIENT WILL TAKE SMALL AMOUNT OF ICE CHIPS PO. ORDER TAKEN AND CARRIED OUT. NEEDS ATTENDED AND ANTICIPATED. CALL LIGHT WITHIN TO REACH. WILL FOLLOW UP.
[2021-05-30] MEDS: PANTOPRAZOLE 40 MG VIAL IV SCH (09:09)
[2021-05-30] MEDS: HEPARIN SODIUM, PORCINE 5000 UNITS/1 ML VIAL SQ SCH ×2 (09:12→16:47)
[2021-05-30] MEDS: IV D5/ 0.9% NACL 1,000 ML IV PRN ×2 (09:49→18:15)
--- NOTE | 2021-05-30 10:30 | NUR ---
rn notes patient getting hemodialysis at this time.
--- NOTE | 2021-05-30 12:51 | NUR ---
RN NOTES FINISHED HD AT THIS TIME OUTPUT WAS 2000ML. BP109/57, P-77, R-21. WILL FOLLOW UP.
[2021-05-30] MEDS: PIPERACILLIN /TAZOBACTAM 2.25 G in IV D5W 50 ML IV SCH ×2 (12:57→21:30)
[2021-05-30] MEDS ORDERED: VANCOMYCIN 1 GM in IV D5W 250 ML IV ONE (17:00)
--- NOTE | 2021-05-30 18:30 | NUR ---
rn notes patient pm care done, vss, due medication administered. assist turn and reposition q 2 hr. patient still on ngt suction, ok for ice chips. patient refused pain, redness perineal area. call light within to reach. endorsed oncoming nurse follow plan of care.
--- NOTE | 2021-05-30 19:30 | NUR ---
REFRIGERATION TECHNICIAN LEVOPHED TITRATED OFF BP 93/69
[2021-05-30] MEDS ORDERED: INSULIN GLARGINE, 100 UNIT/ML CARTRIDGE SQ ONE (23:06)
[2021-05-30] MEDS: INSULIN GLARGINE, 100 UNIT/ML CARTRIDGE SQ SCH (23:17)
[2021-05-31] VITALS (49 sets, daily range): BP systolic 90–119; BP diastolic 46–81
[2021-05-31] MEDS: IV D5/ 0.9% NACL 1,000 ML IV PRN ×3 (02:29→23:50)
[2021-05-31] MEDS: PIPERACILLIN /TAZOBACTAM 2.25 G in IV D5W 50 ML IV SCH ×3 (04:00→21:34)
[2021-05-31 05:40] LABS: BASOPHILS # (AUTO) 0.1 K/uL (0.0-0.2); BASOPHILS % (AUTO) 0.5 % (0.0-2.0); EOSINOPHILS % (AUTO) 1.7 % (0.0-6.0); HEMATOCRIT 31 % (33-45); HEMOGLOBIN 9.5 g/dL (11.5-14.8); LYMPHOCYTES # (AUTO) 0.7 K/uL (0.8-4.8); LYMPHOCYTES % (AUTO) 5.2 % (20.0-44.0); MEAN CORPUSCULAR HGB CONC 30 g/dl (31.0-36.0); MEAN CORPUSCULAR VOLUME 79 fL (82-100); MONOCYTES # (AUTO) 1.2 K/uL (0.1-1.30); MONOCYTES % (AUTO) 9.5 % (2.0-12.0); NEUTROPHILS # (AUTO) 10.7 K/uL (1.8-8.9); NEUTROPHILS % (AUTO) 83.1 % (43.0-81.0); PLATELET COUNT (AUTO) 254 K/uL (150-450); RED BLOOD CELL COUNT(AUTO) 3.99 MIL/uL (4.0-5.2); WHITE BLOOD COUNT (AUTO) 12.9 K/uL (4.3-11.0)
[2021-05-31] MEDS: BLOOD SUGAR DIAGNOSTIC 1 EACH STRIP IN SCH ×4 (06:12→23:20)
[2021-05-31 06:20] LABS: CALCIUM, SERUM 7.5 mg/dL (8.5-10.1); CREATININE 3.1 mg/dL (0.6-1.3); MAGNESIUM 1.9 mg/dL (1.8-2.4); POTASSIUM 3.8 mmol/L (3.5-5.1)
--- NOTE | 2021-05-31 08:00 | NUR ---
rn notes Seen patient on o2-4lnc, and ngt intermittent suction, patient awake, refused pain, sign consent form for CT. Walker draining small amount of urine. patient ok for ice chips. due medication administered, assist turn and reposition q 2 hr. will follow up.
[2021-05-31] MEDS: PANTOPRAZOLE 40 MG VIAL IV SCH (08:53)
[2021-05-31] MEDS: HEPARIN SODIUM, PORCINE 5000 UNITS/1 ML VIAL SQ SCH ×2 (08:54→17:01)
[2021-05-31] MEDS: FERROUS SULFATE UDC 300 MG/5 ML UDC PO SCH (08:59)
--- NOTE | 2021-05-31 11:20 | NUR ---
RN NOTES US OF ABDOMEN IS DINE ON BEDSIDE.
[2021-05-31] MEDS ORDERED: IOHEXOL-300 100 ML VIAL IV ONE (14:48)
[2021-05-31] MEDS ORDERED: IV NS 0.9% 250 ML IV ONE (14:48)
--- NOTE | 2021-05-31 15:00 | NUR ---
RN NOTES CTA DONE WITH CONTRAST, SEEN HOSPITALIST Dr BAI REMOVED NGT AT THIS TIME. PATIENT CCHO 60G DIET.
--- NOTE | 2021-05-31 18:30 | NUR ---
RN NOTES ASSIST PATIENT EATING, TOLERATED DINNER 15%, VSS, NO ACUTE RESPIRATORY DISTRESS, O2-4L, JARA OUTPUT WAS 100ML. DUE MEDICATION ADMINISTERED, PM CARE DONE, ASSIST TURN AND REPOSITION Q 2 HR. ENDORSED ONCOMING NURSE ARAVIND.
--- NOTE | 2021-05-31 20:35 | NUR ---
COSTUMER ASSISTANT NOTES: RECEIVED REPORT FROM ESE SEWELL. RECEIVED PT IN BED, AWAKE, A/OX4, VERBALLY RESPONSIVE. ON O2 AT 3L/MIN VIA N/C AND PT TOLERATED WELL. IV ACCESS JOVANNY MIDLINE, LT WRIST #20G INTACT AND PATENT. RIJ HD CATH INTACT AND PATENT AND COVERED WITH DRY DRESSING. NO BLEEDING NOTED. NO C/O PAIN OR DISCOMFORT. NO ACUTE DISTRESS. JARA CATHETER INTACT WITH YELLOWISH/CLEAR URINE. ONLY 50CC OF URINE NOTED. ALL SAFETY MEASURES IN PLACE. BED IN LOWEST POSITION AND LOCKED. SIDE RAILS UP X3, PLACE CALL LIGHT WITH IN REACH. WILL CONTINUE TO MONITOR
[2021-05-31] MEDS: INSULIN GLARGINE, 100 UNIT/ML CARTRIDGE SQ SCH (22:00)
--- NOTE | 2021-05-31 23:10 | NUR ---
RN NOTES: PT'S BLOOD SUGAR 98. LANTUS NOT ADMINISTERED. NO S/S OF HYPER/HYPOGLYCEMIA. WILL CONTINUE TO MONITOR.
[2021-06-01] VITALS (31 sets, daily range): BP systolic 82–103; BP diastolic 49–70
[2021-06-01 04:42] LABS: BASOPHILS # (AUTO) 0.1 K/uL (0.0-0.2); BASOPHILS % (AUTO) 0.4 % (0.0-2.0); EOSINOPHILS % (AUTO) 0.9 % (0.0-6.0); HEMATOCRIT 34 % (33-45); HEMOGLOBIN 10.4 g/dL (11.5-14.8); LYMPHOCYTES # (AUTO) 0.6 K/uL (0.8-4.8); LYMPHOCYTES % (AUTO) 3.4 % (20.0-44.0); MEAN CORPUSCULAR HGB CONC 30 g/dl (31.0-36.0); MEAN CORPUSCULAR VOLUME 80 fL (82-100); MONOCYTES # (AUTO) 1.1 K/uL (0.1-1.30); MONOCYTES % (AUTO) 6.6 % (2.0-12.0); NEUTROPHILS # (AUTO) 15.1 K/uL (1.8-8.9); NEUTROPHILS % (AUTO) 88.7 % (43.0-81.0); PLATELET COUNT (AUTO) 258 K/uL (150-450); WHITE BLOOD COUNT (AUTO) 17.1 K/uL (4.3-11.0)
[2021-06-01 04:45] LABS: CALCIUM, SERUM 7.9 mg/dL (8.5-10.1); CREATININE 3.7 mg/dL (0.6-1.3); PHOSPHORUS 7.2 mg/dL (2.5-4.9); POTASSIUM 3.8 mmol/L (3.5-5.1)
[2021-06-01 04:55] LABS: OCCULT BLOOD STOOL NEGATIVE (NEGATIVE)
[2021-06-01] MEDS: PIPERACILLIN /TAZOBACTAM 2.25 G in IV D5W 50 ML IV SCH ×3 (04:57→20:19)
[2021-06-01] MEDS: BLOOD SUGAR DIAGNOSTIC 1 EACH STRIP IN SCH ×4 (06:03→23:08)
--- NOTE | 2021-06-01 06:04 | NUR ---
RN NOTES: PT'S BLOOD SUGAR 120. NO COVERAGE NEEDED. NO S/S OF HYPER/HYPOGLYCEMIA. WILL CONTINUE TO MONITOR.
--- NOTE | 2021-06-01 06:54 | NUR ---
CEMENTER MACHINE CLOSING NOTES: PT IS IN BED, SLEEPING BUT EASILY AROUSABLE, A/OX 3-4, VERBALLY RESPONSIVE. ON O2 AT 3L/MIN VIA N/C, O2 SAT 95% AND PT TOLERATED WELL. IV ACCESS JOVANNY MIDLINE, RUNNING D5NS 125CC/HR. LT WRIST #20G INTACT AND PATENT. RIJ HD CATH INTACT AND PATENT AND COVERED WITH DRY DRESSING. NO BLEEDING NOTED. NO C/O PAIN OR DISCOMFORT. NO ACUTE DISTRESS. JARA CATHETER INTACT WITH YELLOWISH/CLEAR URINE. 130CC OF URINE NOTED. ALL DUE MEDS GIVEN ORDERED. ALL SAFETY MEASURES IN PLACE. BED IN LOWEST POSITION AND LOCKED. SIDE RAILS UP X3, PLACE CALL LIGHT WITH IN REACH. WILL ENDORSE TO MORNING SHIFT NURSE.
[2021-06-01 07:06] LABS: CANCER AG, 125 67.9 U/mL (0.0-38.1)
--- NOTE | 2021-06-01 08:00 | NUR ---
rn notes There is a large left pleural effusion and a moderate right pleural effusion which have increased compared to the prior CT. There is patchy opacification throughout the left lung with near complete collapse of the left lower lobe and partial collapse of the left upper lobe most likely secondary to atelectasis rather than pneumonia, although, superimposed infection is not excluded. There is compressive atelectasis in the right lower lobe. Findings have progressed compared to the prior CT. There is no pneumothorax. The central airways and trachea are patent. Seen patient via hospitalist Dr Walter , get to order to stop iv infusion. plan is today thoracentesis. patient tolerated breakfast well with assist, on o2-3lNC. Due medication administered, assist turn and reposition q 2 hr. no output from salvador at this time. will follow up.
[2021-06-01 08:07] LABS: IMMUNOGLOBULIN A, SERUM 116 mg/dL (87-352); IMMUNOGLOBULIN G, SERUM 1617 mg/dL (586-1602); IMMUNOGLOBULIN M, SERUM 116 mg/dL (26-217)
[2021-06-01] MEDS: FERROUS SULFATE UDC 300 MG/5 ML UDC PO SCH (08:43)
[2021-06-01] MEDS: PANTOPRAZOLE 40 MG TABLET.DR PO SCH (08:43)
[2021-06-01] MEDS: HEPARIN SODIUM, PORCINE 5000 UNITS/1 ML VIAL SQ SCH (08:44)
[2021-06-01] MEDS: IV D5/ 0.9% NACL 1,000 ML IV PRN (09:08)
--- NOTE | 2021-06-01 13:35 | NUR ---
RN NOTES PATIENT SCHEDULED LEFT THORACENTESIS, AND MRI OF PELVIC WITH CONTRAST, PATIENT UNABLE TO SIGN CONSENT FORM, BUT VERBALLY AGREES FOR PROCEDURE. COSIGNED WITH CHARGE NURSE
--- NOTE | 2021-06-01 13:55 | NUR ---
RN NOTES PATIENT TRANSFERRED TO THE TELE UNIT ROOM 103 WITH STABLE CONDITION, PATIENT ON O2-3LNC ,VSS. BEDSIDE REPORT GIVEN MELODIE FAN FOLLOW PLAN OF CARE. ANSWERED ALL QUESTIONS.
--- NOTE | 2021-06-01 14:17 | NUR ---
RN NOTE RECEIVED PATIENT FROM ICU, PLACED IN ROOM 103 IN STABLE CONDITION PATIENT IS CURRENTLY UNDERGOING THORACENTESIS, INSURANCE APPRAISER AT BEDSIDE.
[2021-06-01] MEDS: INSULIN REGULAR, HUMAN 100 UNIT/ML 3 ML VIAL SQ PRN ×2 (17:37→23:08)
--- NOTE | 2021-06-01 18:37 | NUR ---
RN CLOSING NOTE PATIENT RESTING IN BED, ON NC 2L. A/O X 2. NO CURRENT COMPLAINTS OF SOB, OR PAIN. IV ACCESS NOTED ON JOVANNY MIDLINE AND L WRIST 20g ALSO RIGHT JUGULAR HD CATH. ALL CLEAN WITH NO SINGS OF INFECTION OR INFILTRATION. PATIENT HAD THORACENTESIS EARLIER TODAY WITH 700CC OUTPUT. SAFETY MEASURES IN PLACE, BED ARM ACTIVATED, 2 SIDE RAILS UP BED LOCKED IN THE LOWEST POSITION. CALL LIGHT WITHIN REACH. WILL ENDORSE TO NIGHT NURSE FOR ARAVIND.
--- NOTE | 2021-06-01 19:15 | NUR ---
RN OPENING NOTE PATIENT RESTING IN BED, ON NC 2L. A/O X 2-3. NO CURRENT COMPLAINTS OF SOB, OR PAIN. IV ACCESS NOTED ON JOVANNY MIDLINE AND L WRIST 20g ALSO RIGHT JUGULAR HD CATH. ALL CLEAN WITH NO SINGS OF INFECTION OR INFILTRATION. PATIENT HAD THORACENTESIS EARLIER TODAY WITH 700CC OUTPUT. SAFETY MEASURES IN PLACE, BED ARM ACTIVATED, 2 SIDE RAILS UP BED LOCKED IN THE LOWEST POSITION. CALL LIGHT WITHIN REACH. ALL NEEDS MET AT THIS ITME. WILL CONTINUE TO MONITOR.
[2021-06-01] MEDS: INSULIN GLARGINE, 100 UNIT/ML CARTRIDGE SQ SCH (22:00)
--- NOTE | 2021-06-01 23:08 | NUR ---
DIRECTOR HR COMMUNICATIONS NOTES PT BS 82 NO INSULIN COVERAGE GIVEN PT IS TO BE NPO AFTER MIDNIGHT.SNACKS AND JUICE PROVIDED.
[2021-06-02 00:57] VITALS: BP 90/50
--- NOTE | 2021-06-02 03:19 | NUR ---
BACK GRINDER NOTES PT NOTED WILL SACRAL EXCORIATION AND PERINEAL SWELLING AND REDNESS PHOTOS TAKEN AND PLACED IN CHART. Z GUARD APPLIED TO PERINEAL AREA AND SACRAL AREA CLEANED WITH NS PAT DRY AND MEPILEX APPLIED TO SITE. WILL ORDER WOUND CARE CONSULT.
[2021-06-02] MEDS: PIPERACILLIN /TAZOBACTAM 2.25 G in IV D5W 50 ML IV SCH ×3 (04:29→20:28)
[2021-06-02 04:47] VITALS: BP 90/45
[2021-06-02] MEDS: INSULIN REGULAR, HUMAN 100 UNIT/ML 3 ML VIAL SQ PRN ×2 (05:46→11:27)
[2021-06-02] MEDS: BLOOD SUGAR DIAGNOSTIC 1 EACH STRIP IN SCH ×4 (05:46→23:01)
--- NOTE | 2021-06-02 07:22 | NUR ---
RN CLOSING NOTE PATIENT RESTING IN BED, ON NC 2L. A/O X 2-3. NO CURRENT COMPLAINTS OF SOB, OR PAIN. IV ACCESS NOTED ON JOVANNY MIDLINE AND L WRIST 20g ALSO RIGHT JUGULAR HD CATH. ALL CLEAN WITH NO SINGS OF INFECTION OR INFILTRATION. PATIENT PT NPO SINCE MIDNIGHT FOR MRI SAFETY MEASURES IN PLACE, BED ARM ACTIVATED, 2 SIDE RAILS UP BED LOCKED IN THE LOWEST POSITION. CALL LIGHT WITHIN REACH. ALL NEEDS MET AT THIS TIME. WILL ENDORSE CARE.
--- NOTE | 2021-06-02 07:30 | NUR ---
RN OPENING NOTE PATIENT RESTING IN BED, ON NC 2L. A/O X 2-3. NO CURRENT COMPLAINTS OF SOB, OR PAIN. IV ACCESS NOTED ON JOVANNY MIDLINE AND L WRIST 20g ALSO RIGHT JUGULAR HD CATH. ALL CLEAN WITH NO SINGS OF INFECTION OR INFILTRATION. SAFETY MEASURES IN PLACE, BED ARM ACTIVATED, 2 SIDE RAILS UP BED LOCKED IN THE LOWEST POSITION. CALL LIGHT WITHIN REACH. WILL CONTINUE TO MONITOR THROUGHOUT SHIFT.
[2021-06-02 07:43] LABS: CALCIUM, SERUM 8.1 mg/dL (8.5-10.1); CREATININE 4.2 mg/dL (0.6-1.3); PHOSPHORUS 7.7 mg/dL (2.5-4.9)
[2021-06-02 07:49] LABS: BASOPHILS % (AUTO) 0.1 % (0.0-2.0); EOSINOPHILS % (AUTO) 0.8 % (0.0-6.0); HEMATOCRIT 37 % (33-45); HEMOGLOBIN 11.1 g/dL (11.5-14.8); LYMPHOCYTES # (AUTO) 0.6 K/uL (0.8-4.8); LYMPHOCYTES % (AUTO) 4.8 % (20.0-44.0); MEAN CORPUSCULAR HGB CONC 30 g/dl (31.0-36.0); MEAN CORPUSCULAR VOLUME 82 fL (82-100); MONOCYTES # (AUTO) 1.7 K/uL (0.1-1.30); MONOCYTES % (AUTO) 13.2 % (2.0-12.0); NEUTROPHILS # (AUTO) 10.3 K/uL (1.8-8.9); NEUTROPHILS % (AUTO) 81.1 % (43.0-81.0); PLATELET COUNT (AUTO) 213 K/uL (150-450); RED BLOOD CELL COUNT(AUTO) 4.55 MIL/uL (4.0-5.2); WHITE BLOOD COUNT (AUTO) 12.8 K/uL (4.3-11.0)
[2021-06-02 08:00] VITALS: BP 93/52
[2021-06-02] MEDS: PANTOPRAZOLE 40 MG TABLET.DR PO SCH (08:29)
[2021-06-02] MEDS: FERROUS SULFATE UDC 300 MG/5 ML UDC PO SCH (08:29)
--- NOTE | 2021-06-02 08:31 | NUR ---
WOUND CARE CONSULT: PT PRESENTS WITH SOME REDNESS TO PERINEUM AND GLUTEAL CREASE/LOWER BUTTOCKS. RECOMMENDATIONS MADE FOR SKIN PROTECTION. DISCUSSED WITH NURSING STAFF. FIRST STEP LOW AIRLOSS MATTRESS IS ORDERED. MD IN AGREEMENT WITH PLAN OF CARE.
[2021-06-02] MEDS ORDERED: Z GUARD REMEDY 4 OZ OINT TP PRN (09:00)
[2021-06-02] MEDS: CLOTRIMAZOLE 1% 15 GM TUBE TP SCH ×2 (09:25→16:10)
[2021-06-02] MEDS: Z GUARD REMEDY 4 OZ OINT TP SCH (09:25)
[2021-06-02 12:00] VITALS: BP 100/61
[2021-06-02 12:07] LABS: *SPE A/G RATIO 0.6 (0.7-1.7); *SPE ALPHA-1-GLOBULIN 0.5 g/dL (0.0-0.4); *SPE ALPHA-2-GLOBULIN 0.9 g/dL (0.4-1.0); *SPE BETA GLOBULIN 0.8 g/dL (0.7-1.3); *SPE M-SPIKE Not Observed g/dL (Not Observed)
[2021-06-02] MEDS ORDERED: FERR300L PO (15:00)
[2021-06-02 16:00] VITALS: BP 143/79
--- NOTE | 2021-06-02 18:54 | NUR ---
RN CLOSING NOTE PATIENT RESTING IN BED, ON NC 2L. A/O X 2. NO CURRENT COMPLAINTS OF SOB, OR PAIN. IV ACCESS NOTED ON JOVANNY MIDLINE AND L WRIST 20g ALSO RIGHT JUGULAR HD CATH. ALL CLEAN WITH NO SINGS OF INFECTION OR INFILTRATION. DISCHARGE PAPERWORK DONE, WAITING FOR TRANSPORTATION TO [facility]. SAFETY MEASURES IN PLACE, BED ARM ACTIVATED, 2 SIDE RAILS UP BED LOCKED IN THE LOWEST POSITION. CALL LIGHT WITHIN REACH. ALL NEEDS MET AT THIS TIME. WILL ENDORSE CARE TO MECHANICAL DESIGN ENGINEER PRODUCTS NURSE.
--- NOTE | 2021-06-02 19:45 | NUR ---
1944 PATIENT PULLED OUT HER RIGHT IJ HEMODIALYSIS CATHETER. NO BLEEDING/HEMATOMA AT SITE NOTED BUT STILL REINFORCED WITH DRESSING. PATIENT DECLINED TO SAY WHY SHE PULLED IT OUT. BI TRI OPERATOR HALEY MADE AWARE WITH ORDER TO DO CHEST XRAY. ORDER NOTED, RADIOLOGY NOTIFIED C/O GERMAIN.
--- NOTE | 2021-06-02 19:45 | NUR ---
RN OPENING NOTES: RECEIVED PATIENT IN BED, AWAKE, ALERT/ORIENTED X2-3, RESPONSIVE TO PAINFUL STIMULI. ON O2 2L/MIN VIA N/C AND TOLERATED WELL. BREATHING EVEN AND UNLABORED. IV ACCESS NOTED ON JOVANNY MIDLINE AND L WRIST #20G. INTACT AND PATENT. NO S/S OF INFILTRATIONS. NOTED PT REMOVED HER RIGHT JUGULAR HD CATH. FOUND ON THE TOP OF THE BED. NO ACTIVE BLEEDING NOTED FROM THE SITE. APPLIED PRESSURE AND COVERED WITH DRY DRESSING. NOTIFIED DR. COFFMAN. NO C/O PAIN OR DISCOMFORT. NO ACUTE DISTRESS. JARA CATHETER INTACT AND PATENT WITH YELLOWISH/ CLEAR URINE. ALL SAFETY MEASURES IN PLACE, BED ARM ON. SIDE RAILS UP X3, BED IN THE LOWEST POSITION AND LOCKED. PLACE CALL LIGHT WITHIN REACH. WILL CONTINUE TO MONITOR.
[2021-06-02 20:00] VITALS: BP 157/86
--- NOTE | 2021-06-02 20:08 | NUR ---
RN NOTES: MEGHNA KONG CALLED BACK WITH AN ORDER FOR CHEST X-RAY DUE PT PULLED OUT THE IJ HD CATHETER. ORDER NOTED AND CARRIED OUT. WILL CONTINUE TO MONITOR
[2021-06-02] MEDS: INSULIN GLARGINE, 100 UNIT/ML CARTRIDGE SQ SCH (22:00)
--- NOTE | 2021-06-02 22:14 | NUR ---
RN NOTES: PT CONSTANTLY REMOVE HER N/C. REMOVED IJ HD CATH. TRYING TO REMOVE THE IV LINE. NOTIFIED MEGHNA KONG. ORDER- ACUTE BILATERAL WRIST SOFT RESTRAINT. ORDER NOTED AND CARRIED OUT.
--- NOTE | 2021-06-02 22:58 | NUR ---
RN NOTES: PT BLOOD SUGAR TRENDING TO 70-80. TONIGHT BS 105. NOT IV FLUID. DOESN'T EAT MUCH. LANTUS [address] COFFMAN'S ORDER. NO S/S OF HYPER/HYPOGLYCEMIA. WILL CONTINUE TO MONITOR
[2021-06-03] VITALS: BP 118/63
[2021-06-03 04:00] VITALS: BP 137/76
[2021-06-03] MEDS: PIPERACILLIN /TAZOBACTAM 2.25 G in IV D5W 50 ML IV SCH ×3 (05:09→20:32)
[2021-06-03] MEDS: BLOOD SUGAR DIAGNOSTIC 1 EACH STRIP IN SCH ×4 (05:30→23:28)
--- NOTE | 2021-06-03 06:31 | NUR ---
RN CLOSING NOTES: PATIENT IN BED, AWAKE, ALERT/ORIENTED X2-3, VERBALLY RESPONSIVE. ON O2 2L/MIN VIA N/C, O2 SAT 93% AND TOLERATED WELL. BREATHING EVEN AND UNLABORED. IV ACCESS NOTED ON JOVANNY MIDLINE AND L WRIST #20G. INTACT AND PATENT. NO S/S OF INFILTRATIONS. BLOOD SUGAR IN THE MORNING 89, NO COVERAGE NEEDED. NO S/S OF HYPER/HYPOGLYCEMIA. NO C/O PAIN OR DISCOMFORT. NO ACUTE DISTRESS. JARA CATHETER INTACT AND PATENT WITH YELLOWISH/ CLEAR URINE. ONLY 125CC OUTPUT. ALL DUE MEDS GIVEN ORDERED. ALL SAFETY MEASURES IN PLACE, BED ARM ON. SIDE RAILS UP X3, BED IN THE LOWEST POSITION AND LOCKED. PLACE CALL LIGHT WITHIN REACH. WILL ENDORSE TO MORNING SHIFT NURSE.
--- NOTE | 2021-06-03 07:11 | NUR ---
RN OPENING NOTES RECEIVED PATIENT IN BED, ASLEEP, ALERT/ORIENTED X2, ON O2 2L/MIN VIA N/C AND TOLERATED WELL. BREATHING EVEN AND UNLABORED. IV ACCESS NOTED ON JOVANNY MIDLINE AND L WRIST #20G. INTACT AND PATENT. NO S/S OF INFILTRATIONS. NOTED PT REMOVED HER RIGHT JUGULAR HD CATH. FOUND ON THE TOP OF THE BED. NO ACTIVE BLEEDING NOTED FROM THE SITE. NO C/O PAIN OR DISCOMFORT. NO ACUTE DISTRESS. JARA CATHETER INTACT AND PATENT WITH YELLOWISH/ CLEAR URINE. ALL SAFETY MEASURES IN PLACE, BED ARM ON. SIDE RAILS UP X3, BED IN THE LOWEST POSITION AND LOCKED. PLACE CALL LIGHT WITHIN REACH. WILL CONTINUE TO MONITOR.
[2021-06-03 07:27] LABS: CALCIUM, SERUM 8.3 mg/dL (8.5-10.1); CREATININE 3.3 mg/dL (0.6-1.3); POTASSIUM 3.5 mmol/L (3.5-5.1)
[2021-06-03 08:00] VITALS: BP 125/73
[2021-06-03] MEDS: FERROUS SULFATE UDC 300 MG/5 ML UDC PO SCH (08:16)
[2021-06-03] MEDS: PANTOPRAZOLE 40 MG TABLET.DR PO SCH (08:16)
[2021-06-03] MEDS: Z GUARD REMEDY 4 OZ OINT TP SCH (08:17)
[2021-06-03] MEDS: CLOTRIMAZOLE 1% 15 GM TUBE TP SCH ×2 (08:17→16:30)
[2021-06-03] MEDS: INSULIN REGULAR, HUMAN 100 UNIT/ML 3 ML VIAL SQ PRN ×3 (11:10→23:28)
[2021-06-03 12:00] VITALS: BP 151/73
--- NOTE | 2021-06-03 13:49 | NUR ---
RN NOTES CONSENT FOR PERMA CATH PLACEMENT SIGNED, BMP ORDERED FOR 0500 ON 06/04/21, WILL PUT PT ON NPO PAST MIDNIGHT.
[2021-06-03 16:00] VITALS: BP 128/65
--- NOTE | 2021-06-03 18:25 | NUR ---
RN CLOSING NOTES PATIENT IN BED ASLEEP RESTING, ALERT/ORIENTED X 2, , VERBALLY RESPONSIVE. ON O2 2L/MIN VIA N/C, O2 SAT 95%. BREATHING EVEN AND UNLABORED. IV ACCESS NOTED ON JOVANNY MIDLINE AND L WRIST #20G. INTACT AND PATENT. NO S/S OF INFILTRATIONS. NO C/O PAIN OR DISCOMFORT. NO ACUTE DISTRESS. JARA CATHETER INTACT AND PATENT WITH YELLOWISH/ CLEAR URINE. 500CC OUTPUT. ALL DUE MEDS GIVEN ORDERED. PT WILL BE NPO AFTER MIDNIGHT FOR PERMA CATH INSERTION. CONSENT SIGNED, BMP ORDERED FOR 0500. ALL SAFETY MEASURES IN PLACE, BED ARM ON. SIDE RAILS UP X3, BED IN THE LOWEST POSITION AND LOCKED. PLACE CALL LIGHT WITHIN REACH. WILL ENDORSE TO MANAGEMENT AIDE NURSE.
--- NOTE | 2021-06-03 19:30 | NUR ---
RN opening notes Received Pt in bed resting comfortably. Pt is alert and orientedX1 with episode of confusion. On 2 L NC. No SOB. No S/S of distress noted. Tele monitor showed SR hr at 89. JOVANNY midline is intact and clean. L wrist # 20 is clean, intact and SL. salvador cath is in placed and draining yellow urine. Bilateral soft wrist restraint is in placed. skin is warm to touch and circulation is check Q 2hr. Safety precautions is maintained. Bed at low position, brakes locked, side rails upX3, hob elevated and call light is within reach. Will continue to monitor.
[2021-06-03 20:00] VITALS: BP 142/80
[2021-06-03] MEDS: INSULIN GLARGINE, 100 UNIT/ML CARTRIDGE SQ SCH (21:50)
[2021-06-04] VITALS: BP 146/79
[2021-06-04 04:00] VITALS: BP 122/79
[2021-06-04] MEDS: PIPERACILLIN /TAZOBACTAM 2.25 G in IV D5W 50 ML IV SCH ×3 (04:01→21:14)
[2021-06-04] MEDS: BLOOD SUGAR DIAGNOSTIC 1 EACH STRIP IN SCH ×3 (05:13→18:47)
[2021-06-04] MEDS: INSULIN REGULAR, HUMAN 100 UNIT/ML 3 ML VIAL SQ PRN (05:13)
--- NOTE | 2021-06-04 05:14 | NUR ---
RN notes Pt's blood sugar 132. Held coverage because NPO diagnosis.
--- NOTE | 2021-06-04 06:37 | NUR ---
RN closing notes Pt is resting in bed comfortably. Pt is alert and orientedX1 with episode of confusion. On 2 L NC. No SOB. No S/S of distress noted. VS is stable. Tele monitor showed SR hr at 84. Routine meds were given as ordered. Kept Pt NPO. JOVANNY midline is intact and clean. L wrist # 20 is clean, intact and SL. salvador cath is in placed and draining yellow urine 450ml. Bilateral soft wrist restraint is in placed. skin is warm to touch and circulation is check Q 2hr. Kept Pt clean, dry and comfortable. Safety precautions is maintained. Bed at low position, brakes locked, side rails upX3, hob elevated and call light is within reach. Will endorse to am nurse for ARAVIND.
[2021-06-04 07:03] LABS: BASOPHILS % (AUTO) 0.6 % (0.0-2.0); EOSINOPHILS % (AUTO) 2.4 % (0.0-6.0); HEMATOCRIT 31 % (33-45); HEMOGLOBIN 9.6 g/dL (11.5-14.8); LYMPHOCYTES # (AUTO) 0.6 K/uL (0.8-4.8); LYMPHOCYTES % (AUTO) 8.6 % (20.0-44.0); MEAN CORPUSCULAR HGB CONC 31 g/dl (31.0-36.0); MEAN CORPUSCULAR VOLUME 77 fL (82-100); MONOCYTES # (AUTO) 0.7 K/uL (0.1-1.30); NEUTROPHILS # (AUTO) 5.7 K/uL (1.8-8.9); NEUTROPHILS % (AUTO) 78.4 % (43.0-81.0); PLATELET COUNT (AUTO) 250 K/uL (150-450); RED BLOOD CELL COUNT(AUTO) 4.02 MIL/uL (4.0-5.2); WHITE BLOOD COUNT (AUTO) 7.3 K/uL (4.3-11.0)
--- NOTE | 2021-06-04 07:20 | NUR ---
RN OPENING NOTES RECEIVED PATIENT IN BED, ASLEEP, ALERT/ORIENTED X1-2 WITH PERIODS OF CONFUSION, ON O2 2L/MIN VIA N/C AND TOLERATING WELL WITH SATURATION OF 100%. BREATHING EVEN AND UNLABORED. NO SIGNS OF ACUTE DISTRESS NOTED AT THE TIME. IV ACCESS NOTED ON JOVANNY MIDLINE AND L WRIST #20G. INTACT AND PATENT. NO S/S OF INFILTRATIONS. NO ACTIVE BLEEDING NOTED FROM RIGHT IJ HD CATH SITE S/P PATIENT PULLED OUT CATH. PATIENT ON NPO STATUS FOR PERMACATH INSERTION TODAY. NO C/O PAIN OR DISCOMFORT. JARA CATHETER INTACT AND PATENT WITH YELLOWISH CLEAR URINE. ALL SAFETY MEASURES IN PLACE, BED ALARM ON. SIDE RAILS UP X3, BED IN THE LOWEST POSITION AND LOCKED. PLACE CALL LIGHT WITHIN REACH. WILL CONTINUE TO MONITOR AND ASSESS PATIENT THROUGHOUT SHIFT.
[2021-06-04 07:41] LABS: CALCIUM, SERUM 8.2 mg/dL (8.5-10.1); MAGNESIUM 2.2 mg/dL (1.8-2.4); PHOSPHORUS 6.3 mg/dL (2.5-4.9); POTASSIUM 3.9 mmol/L (3.5-5.1)
[2021-06-04 08:00] VITALS: BP 147/76
[2021-06-04] MEDS: PANTOPRAZOLE 40 MG TABLET.DR PO SCH (08:16)
[2021-06-04] MEDS: FERROUS SULFATE UDC 300 MG/5 ML UDC PO SCH (08:16)
[2021-06-04] MEDS: CLOTRIMAZOLE 1% 15 GM TUBE TP SCH ×2 (09:21→16:08)
[2021-06-04] MEDS: Z GUARD REMEDY 4 OZ OINT TP SCH (09:21)
[2021-06-04 12:00] VITALS: BP 150/77
--- NOTE | 2021-06-04 12:11 | NUR ---
RN NOTES PATIENT HAS RESULT OF 101 MG/DL FOR BLOOD SUGAR, NO INSULIN COVERAGE NEEDED. NO SIGNS OF HYPER/HYPOGLYCEMIA NOTED AT THE TIME. ALL SAFETY MEASURES IN PLACE.
[2021-06-04] MEDS ORDERED: IOHEXOL 240MG/ML 0 ML IV ONE (15:24)
[2021-06-04] MEDS ORDERED: HEPARIN SODIUM, PORCINE 1,000 UNIT/ML VIAL ONE (15:24)
[2021-06-04] MEDS ORDERED: LIDOCAINE 1% INJ 50 ML MDV IJ ONE (15:25)
[2021-06-04 16:00] VITALS: BP 153/85
--- NOTE | 2021-06-04 16:55 | NUR ---
RN NOTE PATIENT LEFT UNIT WITH OR STAFF FOR PROCEDURE OF PERMA CATH PLACEMENT. BREATHING EVEN AND UNLABORED. NO SOB NOTED DURING TRANSFER. NO ACUTE DISTRESS NOTED DURING TRANSFER.
[2021-06-04] MEDS ORDERED: FENTANYL PF 100MCG/2ML AMPUL ONE (17:19)
--- NOTE | 2021-06-04 17:45 | NUR ---
RN NOTE PATIENT'S SPECIAL MATTRESS WAS DROPPED OFF TO UNIT, PATIENT STILL NOT BACK TO UNIT, UNABLE TO PUT SPECIAL MATTRESS FOR PATIENT.
--- NOTE | 2021-06-04 18:49 | NUR ---
RN NOTE PATIENT BACK IN UNIT S/P PERMACATH PLACEMENT ON RIGHT CHEST WALL. SITE WITH DRESSING INTACT, CLEAN AND DRY. VITAL SIGNS= BP-146/78, HR-81,O2-93%, RR-16, TEMP 96.8, BLOOD SUGAR 123. NO ACUTE DISTRESS NOTED AT THE TIME. BREATHING EVEN AND UNLABORED. NEW ORDERS NOTED PER KAIN DE OLIVEIRA TO USE LINE AND TO RESUME DIET. ALL NEEDS ANTICIPATED. ALL SAFETY MEASURES IN PLACE.
--- NOTE | 2021-06-04 19:26 | NUR ---
RN CLOSING NOTES PATIENT REMAINS IN STABLE CONDITION THROUGHOUT SHIFT. PATIENT IN BED, ASLEEP, ON O2 3L/MIN VIA N/C AND TOLERATING WELL. BREATHING EVEN AND UNLABORED. NO SIGNS OF ACUTE DISTRESS NOTED AT THE TIME. IV ACCESS NOTED ON JOVANNY MIDLINE AND L WRIST #20G. INTACT AND PATENT. NO S/S OF INFILTRATIONS. NEW HD CATH ON RIGHT CHEST WALL, DRESSING INTACT AND DRY. NO C/O PAIN OR DISCOMFORT. KEPT PATIENT CLEAN DRY AND COMFORTABLE. ALL SAFETY MEASURES IN PLACE, BED ALARM ON. SIDE RAILS UP X3, BED IN THE LOWEST POSITION AND LOCKED. PLACE CALL LIGHT WITHIN REACH. ENDORSED TO FIRE CONTROL TECHNICIAN B NURSE FOR CONTINUITY OF CARE.
--- NOTE | 2021-06-04 19:30 | NUR ---
RN NOTE RECEIVED PATIENT IN BED RESTING ALERT ORIENTEDX1-2 VERBALLY RESPONSIVE ON 3L OXYGEN VIA NASAL CANNULA,O2:95% IV SITE IS ON RIGHT UPPER ARM MIDLINE INTACT PATENT,HD CATH ON RIGHT UPPER CHEST INTACT.PATIENT IS ON HD NOW,JARA CATHETER IN PLACE URINE DRAINING BY GRAVITY,SOFT BILATERAL WRIST RESTRAIN IN PLACE WILL CHECK EVERY 15 MINS FOR SKIN BREAKDOWN,AND CIRCULATION,SAFETY MEASURE IMPLEMENT BED IN LOW POSITION AND LOCKED HEAD OF THE BED ELEVATED,CONTINUE TO MONITOR.
--- NOTE | 2021-06-04 19:33 | NUR ---
her father called in at this time cell # [phone] home phone is [phone] his name is THOM LOMBARDO for his contact number
[2021-06-04 20:00] VITALS: BP 130/81
[2021-06-04] MEDS: INSULIN GLARGINE, 100 UNIT/ML CARTRIDGE SQ SCH (21:57)
--- NOTE | 2021-06-04 21:58 | NUR ---
RN NOTE INSULIN LANTUS NOT GIVEN DUE TO BS 95 CONTINUE TO MONITOR.
--- NOTE | 2021-06-04 22:00 | NUR ---
RN NOTE DIALYSIS DONE AND TOOK OUT 2L FLUIDS.
[2021-06-04] MEDS: VANCOMYCIN POST DIALYSIS 500MG IV PRN ×2 (22:10)
--- NOTE | 2021-06-04 22:10 | NUR ---
RN NOTE VANCOMYCIN GIVEN AFTER DIALYSIS CONTINUE TO MONITOR.
[2021-06-05] VITALS: BP 122/74
[2021-06-05] MEDS: BLOOD SUGAR DIAGNOSTIC 1 EACH STRIP IN SCH ×5 (00:19→23:43)
[2021-06-05 04:00] VITALS: BP 128/72
[2021-06-05] MEDS: PIPERACILLIN /TAZOBACTAM 2.25 G in IV D5W 50 ML IV SCH ×3 (05:16→22:50)
--- NOTE | 2021-06-05 07:02 | NUR ---
RN NOTE PATIENT REMAINS ALERT ORIENTED X1 VERBALLY RESPONSIVE ON 3L OXYGEN VIA NASAL CANNULA,O2:96% NO SOB NOT ACUTE DISTRESS NOTED,ALL DUE MEDS GIVEN MD ORDERED KEPT CLEAN AND DRY ALL THE TIME,TURNED AND REPOSITIONED EVERY 2 HOURS,SOFT BILATERAL RESTRAINS IN PLACE CHECKED EVERY 15 MINS FOR CIRCULATION,ALL NEEDS MET ENDORSE NEXT COMING SHIFT FOR CONTINUATION OF CARE.
--- NOTE | 2021-06-05 07:30 | NUR ---
OPENING NOTE: REPORT RECEIVED FROM EV SEWELL. PT IS CONFUSED, YELLING OUT CONSTANTLY FOR HELP BUT WHEN ASKED WHAT HELP SHE NEEDS SHE REPLIES THAT SHE NEEDS HELP. PT MONITORED CLOSELY, NEEDS MET. PT TO HAVE DIALYSIS TODAY PER MD ORDERS. PT CHECKED ON HOURLY AND PRN BY NURSING STAFF.
[2021-06-05 07:36] LABS: BASOPHILS # (AUTO) 0.1 K/uL (0.0-0.2); BASOPHILS % (AUTO) 0.7 % (0.0-2.0); EOSINOPHILS % (AUTO) 2.7 % (0.0-6.0); HEMATOCRIT 32 % (33-45); HEMOGLOBIN 9.9 g/dL (11.5-14.8); LYMPHOCYTES # (AUTO) 0.6 K/uL (0.8-4.8); LYMPHOCYTES % (AUTO) 7.9 % (20.0-44.0); MEAN CORPUSCULAR HGB CONC 31 g/dl (31.0-36.0); MEAN CORPUSCULAR VOLUME 77 fL (82-100); MONOCYTES # (AUTO) 0.8 K/uL (0.1-1.30); MONOCYTES % (AUTO) 10.7 % (2.0-12.0); NEUTROPHILS # (AUTO) 6.2 K/uL (1.8-8.9); PLATELET COUNT (AUTO) 173 K/uL (150-450); RED BLOOD CELL COUNT(AUTO) 4.13 MIL/uL (4.0-5.2); WHITE BLOOD COUNT (AUTO) 7.9 K/uL (4.3-11.0)
[2021-06-05 08:00] VITALS: BP 150/83
[2021-06-05 08:13] LABS: PHOSPHORUS 4.8 mg/dL (2.5-4.9); POTASSIUM 3.5 mmol/L (3.5-5.1)
[2021-06-05 12:00] VITALS: BP 125/75
[2021-06-05] MEDS: PANTOPRAZOLE 40 MG TABLET.DR PO SCH (14:03)
[2021-06-05] MEDS: FERROUS SULFATE UDC 300 MG/5 ML UDC PO SCH (14:03)
[2021-06-05] MEDS: CLOTRIMAZOLE 1% 15 GM TUBE TP SCH ×2 (14:03→17:41)
[2021-06-05] MEDS: Z GUARD REMEDY 4 OZ OINT TP SCH (14:04)
[2021-06-05 16:00] VITALS: BP 146/79
[2021-06-05] MEDS: GLUCERNA SHAKE 237 ML CAN PO SCH (17:41)
[2021-06-05] MEDS: VANCOMYCIN POST DIALYSIS 500MG IV PRN ×2 (17:42)
--- NOTE | 2021-06-05 18:26 | NUR ---
END OF SHIFT NOTE: PT HAD HD TODAY 2L OFF PER HD RN'S REPORT. PT WAS AGITATED THE ENTIRE SHIFT. YELLED FOR HELP EVEN IF RN WAS IN THE ROOM. WHEN RN ASKED PATIENT WHAT SHE NEEDED SHE JUST ANSWERED SHE NEEDED HELP. PT CHECKED ON HOURLY AND PRN BY NURSING STAFF.
[2021-06-05] MEDS: SOD FERRIC GLUC 125 MG in IV NS 0.9% 100 ML IV SCH (18:47)
--- NOTE | 2021-06-05 19:27 | NUR ---
RN OPENING NOTES RECEIVED PT IN BED, ASLEEP, AWAKENS TO VERBAL STIMULI. AOx1, WITH PERIODS OF CONFUSION. ON NC 3LPM AND TOLERATING WELL. NO SOB NOTED. NO S/SX OF RESPIRATORY DISTRESS NOTED. TELE MONITOR DETECTS SINUS RHYTHM. IV ACCESS IN JOVANNY MIDLINE. IV IS INTACT, PATENT, AND FLUSHING WELL. SAFETY PRECAUTIONS IN PLACE: BED IN LOWEST, LOCKED POSITION, SIDERAILS UPx2, AND BRAKES ON. TABLE AND CALL LIGHT WITHIN REACH. WILL CONTINUE TO MONITOR.
[2021-06-05 20:00] VITALS: BP 122/62
[2021-06-05] MEDS: INSULIN GLARGINE, 100 UNIT/ML CARTRIDGE SQ SCH (22:00)
[2021-06-06] VITALS: BP 126/88
[2021-06-06 04:00] VITALS: BP 133/67
[2021-06-06] MEDS: PIPERACILLIN /TAZOBACTAM 2.25 G in IV D5W 50 ML IV SCH ×3 (06:12→21:36)
[2021-06-06] MEDS: BLOOD SUGAR DIAGNOSTIC 1 EACH STRIP IN SCH ×4 (06:22→23:07)
[2021-06-06 06:31] LABS: BASOPHILS % (AUTO) 0.6 % (0.0-2.0); EOSINOPHILS % (AUTO) 2.9 % (0.0-6.0); HEMATOCRIT 29 % (33-45); HEMOGLOBIN 9.1 g/dL (11.5-14.8); LYMPHOCYTES # (AUTO) 0.7 K/uL (0.8-4.8); LYMPHOCYTES % (AUTO) 11.7 % (20.0-44.0); MEAN CORPUSCULAR HGB CONC 32 g/dl (31.0-36.0); MEAN CORPUSCULAR VOLUME 77 fL (82-100); MONOCYTES # (AUTO) 0.6 K/uL (0.1-1.30); MONOCYTES % (AUTO) 9.2 % (2.0-12.0); NEUTROPHILS # (AUTO) 4.7 K/uL (1.8-8.9); NEUTROPHILS % (AUTO) 75.6 % (43.0-81.0); PLATELET COUNT (AUTO) 94 K/uL (150-450); RED BLOOD CELL COUNT(AUTO) 3.78 MIL/uL (4.0-5.2); WHITE BLOOD COUNT (AUTO) 6.3 K/uL (4.3-11.0)
[2021-06-06 06:45] LABS: CALCIUM, SERUM 8.2 mg/dL (8.5-10.1); CREATININE 2.6 mg/dL (0.6-1.3); MAGNESIUM 1.8 mg/dL (1.8-2.4); PHOSPHORUS 4.3 mg/dL (2.5-4.9); POTASSIUM 3.3 mmol/L (3.5-5.1)
--- NOTE | 2021-06-06 06:45 | NUR ---
RN CLOSING NOTES PT IN BED, ASLEEP, AWAKENS TO VERBAL STIMULI. AOx2, WITH PERIODS OF CONFUSION. ON NC 3LPM AND TOLERATING WELL. NO SOB NOTED. NO S/SX OF RESPIRATORY DISTRESS NOTED. TELE MONITOR DETECTS SINUS RHYTHM. IV ACCESS IN JOVANNY MIDLINE. IV IS INTACT, PATENT, AND FLUSHING WELL. ALL NEEDS MET. PT KEPT CLEAN AND DRY. SAFETY PRECAUTIONS IN PLACE: BED IN LOWEST, LOCKED POSITION, SIDERAILS UPx2, AND BRAKES ON. TABLE AND CALL LIGHT WITHIN REACH. WILL ENDORSE TO ONCOMING SHIFT FOR ARAVIND.
--- NOTE | 2021-06-06 07:37 | NUR ---
CHIEF OF PARTY OPENING NOTES: RECEIVED PT IN BED, ASLEEP, AWAKENS TO VERBAL STIMULI. AOx2, WITH PERIODS OF CONFUSION. RESPIRATION IS EVEN AND UNLABORED,ON NC 3LPM AND TOLERATING WELL. NO SOB NOTED. NO S/SX OF RESPIRATORY DISTRESS NOTED. TELE MONITOR DETECTS SINUS RHYTHM. IV ACCESS IN JOVANNY MIDLINE. IV IS INTACT, PATENT, AND FLUSHING WELL. SAFETY PRECAUTIONS IN PLACE: BED IN LOWEST, LOCKED POSITION, SIDERAILS UPx2, AND BRAKES ON. CALL LIGHT WITHIN REACH. WILL CONTINUE TO MONITOR.
[2021-06-06 08:00] VITALS: BP 116/68
[2021-06-06] MEDS: PANTOPRAZOLE 40 MG TABLET.DR PO SCH (08:20)
[2021-06-06] MEDS: GLUCERNA SHAKE 237 ML CAN PO SCH ×2 (08:20→17:42)
[2021-06-06 08:43] LABS: EOSINOPHILS % (MANUAL) 2 % (0-4); LYMPHOCYTES % (MANUAL) 12 % (16-48); MONOCYTES % (MANUAL) 3 % (0-11.0); NEUTROPHILS % (MANUAL) 83 (42-76)
[2021-06-06] MEDS: Z GUARD REMEDY 4 OZ OINT TP SCH (09:42)
[2021-06-06] MEDS: CLOTRIMAZOLE 1% 15 GM TUBE TP SCH ×2 (09:42→17:07)
[2021-06-06 12:00] VITALS: BP 129/67
[2021-06-06] MEDS: SOD FERRIC GLUC 125 MG in IV NS 0.9% 100 ML IV SCH (14:46)
[2021-06-06 16:00] VITALS: BP 119/67
[2021-06-06] MEDS: INSULIN REGULAR, HUMAN 100 UNIT/ML 3 ML VIAL SQ PRN ×2 (18:38→23:10)
--- NOTE | 2021-06-06 19:15 | NUR ---
RN NOTE RECEIVED PATIENT IN BED, AO X 2, IN NO ACUTE DISTRESS AT THIS TIME. BREATHING EVEN AND UNLABORED, SATURATION AT 98%, SR ON THE MONITOR, HR IS 80. NOTED IV SITE AT L WRIST 20G, AND JOVANNY MIDLINE, PATENT AND FLUSHING WELL, NO S/S OF INFECTION OR INFILTRATION, R IJ HD CATH IN PLACE, NO INFECTION OR BLEEDING NOTED.B SOFT WRIST RESTRAINTS IN PLACE, SKIN AND CIRCULATION WAS CHECKED AND ARE WNL. SAFETY MEASURES IMPLEMENTED. PATIENT BED ALARM IS ON. HEAD OF BED ELEVATED. BED IS LOCKED, IN LOWEST POSITION AND SIDE RAILS UP. CALL LIGHT WITHIN REACH OF THE PATIENT. WILL CONTINUE TO MONITOR AND REASSESS FOR ANY CHANGES.
--- NOTE | 2021-06-06 19:30 | NUR ---
RN closing notes: PT IN BED,awake. AOx2 to 3, WITH PERIODS OF CONFUSION. ON NC 3LPM AND TOLERATING WELL. NO SOB NOTED. NO S/SX OF RESPIRATORY DISTRESS NOTED. TELE MONITOR DETECTS SINUS RHYTHM. IV ACCESS IN JOVANNY MIDLINE. IV IS INTACT, PATENT, AND FLUSHING WELL. ALL NEEDS MET. dialysis done early with 2500 fluid out without any complications.PT KEPT CLEAN AND DRY. SAFETY PRECAUTIONS IN PLACE: BED IN LOWEST, LOCKED POSITION, SIDERAILS UPx2, AND BRAKES ON. TABLE AND CALL LIGHT WITHIN REACH. WILL ENDORSE TO ONCOMING SHIFT FOR ARAVIND.
[2021-06-06 20:00] VITALS: BP 146/79
[2021-06-06] MEDS: INSULIN GLARGINE, 100 UNIT/ML CARTRIDGE SQ SCH (23:11)
[2021-06-07] VITALS: BP 102/56
[2021-06-07 04:00] VITALS: BP 113/63
[2021-06-07] MEDS: PIPERACILLIN /TAZOBACTAM 2.25 G in IV D5W 50 ML IV SCH ×3 (06:02→21:24)
[2021-06-07 06:21] LABS: CALCIUM, SERUM 7.9 mg/dL (8.5-10.1); CREATININE 2.5 mg/dL (0.6-1.3); MAGNESIUM 2.1 mg/dL (1.8-2.4); PHOSPHORUS 2.9 mg/dL (2.5-4.9); POTASSIUM 3.4 mmol/L (3.5-5.1)
[2021-06-07 06:26] LABS: BASOPHILS % (AUTO) 0.4 % (0.0-2.0); EOSINOPHILS % (AUTO) 3.4 % (0.0-6.0); HEMATOCRIT 31 % (33-45); HEMOGLOBIN 9.6 g/dL (11.5-14.8); LYMPHOCYTES # (AUTO) 0.7 K/uL (0.8-4.8); LYMPHOCYTES % (AUTO) 8.8 % (20.0-44.0); MEAN CORPUSCULAR HGB CONC 31 g/dl (31.0-36.0); MEAN CORPUSCULAR VOLUME 77 fL (82-100); MONOCYTES # (AUTO) 0.8 K/uL (0.1-1.30); NEUTROPHILS # (AUTO) 6.6 K/uL (1.8-8.9); NEUTROPHILS % (AUTO) 78.4 % (43.0-81.0); PLATELET COUNT (AUTO) 103 K/uL (150-450); RED BLOOD CELL COUNT(AUTO) 4.03 MIL/uL (4.0-5.2); WHITE BLOOD COUNT (AUTO) 8.4 K/uL (4.3-11.0)
[2021-06-07] MEDS ORDERED: DEXTROSE 50%-WATER 50 ML DISP.SYRIN IV PRN ×2 (07:30→13:30)
[2021-06-07] MEDS ORDERED: *INSULIN REGULAR(HUMULIN R)HUM 100 UNIT/ML VIAL SQ PRN ×2 (07:30→13:30)
[2021-06-07] MEDS: BLOOD SUGAR DIAGNOSTIC 1 EACH STRIP VI SCH ×5 (07:30→21:48)
[2021-06-07] MEDS ORDERED: INSULIN REGULAR, HUMAN 100 UNIT/ML 3 ML VIAL SQ PRN (07:30)
[2021-06-07 08:00] VITALS: BP 122/70
[2021-06-07] MEDS: GLUCERNA SHAKE 237 ML CAN PO SCH ×2 (08:00→17:26)
[2021-06-07] MEDS: PANTOPRAZOLE 40 MG TABLET.DR PO SCH (09:00)
[2021-06-07] MEDS: Z GUARD REMEDY 4 OZ OINT TP SCH (09:00)
[2021-06-07] MEDS: CLOTRIMAZOLE 1% 15 GM TUBE TP SCH ×2 (09:00→17:26)
[2021-06-07] MEDS ORDERED: POTASSIUM CHLORIDE 10 MEQ TABLET.SA PO ONE (09:00)
[2021-06-07 12:00] VITALS: BP 105/71
[2021-06-07 16:00] VITALS: BP 105/71
[2021-06-07] MEDS: SOD FERRIC GLUC 125 MG in IV NS 0.9% 100 ML IV SCH (17:25)
--- NOTE | 2021-06-07 19:15 | NUR ---
RN NOTE RECEIVED PT ON BED , AWAKE, RESPONDED TO STIMULI, ALERT AND ORIENTED X2, O2 VIA NC AT 3L TOLERATING WELL, NOT IN RESPIRATORY DISTRESS, SR ON TELEMONITOR, WITH R HD CATH, JOVANNY MIDLINE, L WRIST #20, PATENT AND INTACT, PT NOTED BILATERAL SOFT WRIST RESTRAINTS, WITH JARA CATH IN PLACE WITH YELLOWISH COLORED URINE, SAFETY MEASURES PROVIDED, SIDE RAILS UP, BED LOCKED AND IN LOWEST POSITION, CALL LIGHT WITHIN REACH, ALL NEEDS PROVIDED, WILL CONTINUE TO MONITOR PATIENT.
[2021-06-07 20:00] VITALS: BP 123/61
--- NOTE | 2021-06-07 21:50 | NUR ---
RN NOTE BLOOD SUGAR CHECK, 87 MG/DL
[2021-06-07] MEDS: INSULIN GLARGINE, 100 UNIT/ML CARTRIDGE SQ SCH (22:00)
--- NOTE | 2021-06-07 22:17 | NUR ---
RN NOTE BLOOD SUGAR CHECKED 87 MG/DL INFORMED SENIOR CIVIL ENGINEER MEGHNA MAN NP, OK TO HOLD LANTUS.
[2021-06-08] VITALS: BP 110/57
[2021-06-08 04:00] VITALS: BP 96/51
[2021-06-08] MEDS: PIPERACILLIN /TAZOBACTAM 2.25 G in IV D5W 50 ML IV SCH ×2 (04:43→12:25)
--- NOTE | 2021-06-08 05:00 | NUR ---
DUE MEDS GIVEN
--- NOTE | 2021-06-08 06:50 | NUR ---
RN CLOSING NOTE NO SIGNIFICANT CHANGES THROUGHOUT THE SHIFT. PT ASLEEP AWAKENS TO VERBAL STIMULI. ALERT AND ORIENTED X3. WITH O2 VIA NASAL CANNULA RUNNING AT 3LPM AND TOLERATING WELL. DENIES SOB. NO S/SX OF RESPIRATORY DISTRESS NOTED. TELE MONITOR DETECTS SINUS RHYTHM. IV ACCESS IN JOVANNY MIDLINE. IV IS INTACT, PATENT, AND FLUSHING WELL. NOTED WITH JARA CATHETER IN PLACE DRAINING YELLOWISH COLORED URINE, ALL DUE MEDS GIVEN. PT KEPT CLEAN AND DRY. SAFETY MEASURES PROVIDED: BED IN LOWEST, LOCKED POSITION, CALL LIGHT WITHIN REACH. WILL ENDORSE TO THE DAY SHIFT NURSE.
[2021-06-08 07:19] LABS: CALCIUM, SERUM 7.9 mg/dL (8.5-10.1); CREATININE 3.2 mg/dL (0.6-1.3); MAGNESIUM 2.1 mg/dL (1.8-2.4); PHOSPHORUS 4.5 mg/dL (2.5-4.9); POTASSIUM 3.5 mmol/L (3.5-5.1)
[2021-06-08 07:22] LABS: BASOPHILS % (AUTO) 0.6 % (0.0-2.0); HEMATOCRIT 31 % (33-45); HEMOGLOBIN 9.4 g/dL (11.5-14.8); LYMPHOCYTES % (AUTO) 16.2 % (20.0-44.0); MEAN CORPUSCULAR HGB CONC 31 g/dl (31.0-36.0); MEAN CORPUSCULAR VOLUME 78 fL (82-100); MONOCYTES # (AUTO) 0.6 K/uL (0.1-1.30); MONOCYTES % (AUTO) 9.5 % (2.0-12.0); NEUTROPHILS # (AUTO) 4.4 K/uL (1.8-8.9); NEUTROPHILS % (AUTO) 69.7 % (43.0-81.0); PLATELET COUNT (AUTO) 58 K/uL (150-450); WHITE BLOOD COUNT (AUTO) 6.3 K/uL (4.3-11.0)
[2021-06-08] MEDS: BLOOD SUGAR DIAGNOSTIC 1 EACH STRIP VI SCH ×3 (08:19→17:35)
[2021-06-08 08:30] VITALS: BP 122/70
[2021-06-08] MEDS: CLOTRIMAZOLE 1% 15 GM TUBE TP SCH ×2 (08:41→17:15)
[2021-06-08] MEDS: PANTOPRAZOLE 40 MG TABLET.DR PO SCH (08:41)
[2021-06-08] MEDS: Z GUARD REMEDY 4 OZ OINT TP SCH (08:42)
[2021-06-08] MEDS: GLUCERNA SHAKE 237 ML CAN PO SCH ×2 (08:43→17:15)
--- NOTE | 2021-06-08 08:55 | NUR ---
HOSPICE SPIRITUAL CARE COORDINATOR NOTES TOOK OVER CARE, REPORT GIVEN BY FIDEL SEWELL. PATIENT LYING IN BED, HEAD OF BED ELEVATED. ALERT ORIENTED X 2-3. NO ACUTE DISTRESS NOTED.BREATHING UNLABORED. DENIED ANY PAIN. SINUS RHYTHM ON TELE MONITOR. BILATERAL SOFT RESTRAINT CHECKED WITH GOOD CIRCULATION AND NO SKIN BREAK DOWN. SAFETY MEASURES IN PLACE, CALL LIGHT WITHIN REACH. WILL CONTINUE TO MONITOR ACCORDINGLY.
[2021-06-08 09:32] LABS: EOSINOPHILS % (MANUAL) 4 % (0-4); LYMPHOCYTES % (MANUAL) 21 % (16-48); MONOCYTES % (MANUAL) 5 % (0-11.0); NEUTROPHILS % (MANUAL) 70 (42-76)
[2021-06-08 12:20] VITALS: BP 145/74
[2021-06-08] MEDS: INSULIN REGULAR, HUMAN 100 UNIT/ML 3 ML VIAL SQ PRN ×2 (12:24→17:47)
[2021-06-08] MEDS: SOD FERRIC GLUC 125 MG in IV NS 0.9% 100 ML IV SCH (14:51)
[2021-06-08 16:04] VITALS: BP 132/80
--- NOTE | 2021-06-08 18:51 | NUR ---
ELECTRICIAN ASSISTANT NOTES PATIENT DISCHARGE TO [facility], REPORT GIVEN ASH SEWELL. PATIENT WITH STABLE VITAL SIGNS. NO ACUTE DISTRESS NOTED. NO SOB NOTED. DENIED ANY PAIN, NO FACIAL GRIMACING NOTED. DISCHARGE INSTRUCTIONS HANDED OVER TO EMT PERSONNEL INCLUDING ALL BELONGINGS INCLUDING CELLPHONE AND MONEY TAKEN WITH THE PATIENT. IV ACCESS REMOVED, TIP INTACT, NO REDNESS, NO BLEEDING, NO SWELLING NOTED. RIGHT CHEST WALL DIALYSIS ACCESS INTACT WITH TRANSPARENT DRESSING, NO REDNESS, NO SWELLING, NO BLEEDING NOTED. JARA CATHETER PATENT AND INTACT . PICKED UP VIA AMBULANCE IN A GURNEY ACCOMPANIED BY 2 EMT PERSONNEL IN STABLE CONDITION. PATIENT REFUSED PHOTO TAKEN. SKIN IS INTACT.
== END 2021-06-08 18:52 | DRG 720 ==
LOC: ER 10:56 → TRANSITION 13:58 → ICU 14:49 → TELE1 06-01 14:04
PROVIDERS: ADMIT Internal Medicine; ATTEND Student in an Organized Health Care Education/Training Program
PROC: 5A1945Z Respiratory Ventilation, 24-96 Consecutive Hours (ICD-10-PCS; principal; 2021-05-26)
PROC: 0BH18EZ Insertion of Endotracheal Airway into Trachea, Via Natural or Artificial Opening Endoscopic (ICD-10-PCS; 2021-05-26)
PROC: 5A1D70Z Performance of Urinary Filtration, Intermittent, Less than 6 Hours Per Day (ICD-10-PCS; 2021-05-26)
PROC: 0W9B3ZZ Drainage of Left Pleural Cavity, Percutaneous Approach (ICD-10-PCS; 2021-05-26)
PROC: 05HD33Z Insertion of Infusion Device into Right Cephalic Vein, Percutaneous Approach (ICD-10-PCS; 2021-05-26)
PROC: 05HM33Z Insertion of Infusion Device into Right Internal Jugular Vein, Percutaneous Approach (ICD-10-PCS; 2021-05-26)
PROC: B543ZZA Ultrasonography of Right Jugular Veins, Guidance (ICD-10-PCS; 2021-05-26)
PROC: 0JHD3XZ Insertion of Tunneled Vascular Access Device into Right Upper Arm Subcutaneous Tissue and Fascia, Percutaneous Approach (ICD-10-PCS; 2021-06-04)
PROC: 05HM33Z Insertion of Infusion Device into Right Internal Jugular Vein, Percutaneous Approach (ICD-10-PCS; 2021-06-04)
PROC: B5131ZA Fluoroscopy of Right Jugular Veins using Low Osmolar Contrast, Guidance (ICD-10-PCS; 2021-06-04)
DX: A41.9 Sepsis, unspecified organism (principal); N17.0 Acute kidney failure with tubular necrosis; R65.21 Severe sepsis with septic shock; J96.01 Acute respiratory failure with hypoxia; J96.02 Acute respiratory failure with hypercapnia; E11.649 Type 2 diabetes mellitus with hypoglycemia without coma; D69.6 Thrombocytopenia, unspecified; J18.9 Pneumonia, unspecified organism; E66.2 Morbid (severe) obesity with alveolar hypoventilation; I13.2 Hypertensive heart and chronic kidney disease with heart failure and with stage 5 chronic kidney disease, or end stage renal disease; E87.1 Hypo-osmolality and hyponatremia; R18.8 Other ascites; I50.32 Chronic diastolic (congestive) heart failure; E87.2 Acidosis; I21.A1 Myocardial infarction type 2; Z20.822 Contact with and (suspected) exposure to COVID-19; J44.9 Chronic obstructive pulmonary disease, unspecified; E11.22 Type 2 diabetes mellitus with diabetic chronic kidney disease; Z79.84 Long term (current) use of oral hypoglycemic drugs; Z79.4 Long term (current) use of insulin; Z79.51 Long term (current) use of inhaled steroids; Z79.899 Other long term (current) drug therapy; E78.5 Hyperlipidemia, unspecified; E87.5 Hyperkalemia; I25.2 Old myocardial infarction; Z68.41 Body mass index [BMI] 40.0-44.9, adult; K83.8 Other specified diseases of biliary tract; D25.9 Leiomyoma of uterus, unspecified; I31.3 Pericardial effusion (noninflammatory); I70.0 Atherosclerosis of aorta; J98.11 Atelectasis; N26.1 Atrophy of kidney (terminal); K57.30 Diverticulosis of large intestine without perforation or abscess without bleeding; D50.9 Iron deficiency anemia, unspecified; R59.0 Localized enlarged lymph nodes; J90 Pleural effusion, not elsewhere classified; E87.70 Fluid overload, unspecified; M46.47 Discitis, unspecified, lumbosacral region; Z99.2 Dependence on renal dialysis
CPT/HCPCS: 31720; 36415; 36600; 71045-TC; 71250-TC; 71260-TC; 76770-TC; 76856-TC; 80048-TC; 80053-TC; 80076-TC; 80202-TC; 81001; 82272-TC; 82378; 82533; 82607-TC; 82728-TC; 82784; 82803-TC; 82962-TC; 83540-TC; 83605-TC; 83615-TC; 83735-TC; 84100-TC; 84155; 84155-TC; 84165; 84439-TC; 84443-TC; 84478-TC; 84484-TC; 85025-TC; 85730-TC; 86304; 86334; 86704; 86705; 86706; 86803; 87040-TC; 87070-TC; 87075-TC; 87081-TC; 87086-TC; 87102-TC; 87340; 89051-TC; 90935-TC; 93307-TC; 94002-TC; 94003-TC; 94760-TC; 94799-TC; A6253; C1750; C1769; C1894; C9113; C9803; G0378; J0610; J1644; J1815; J2405; J2543; J2704; J2916; J3010; J3370; J3475; J3480; J3490; J7030; J7040; J7042; J7050; J7060; Q9963; Q9966; Q9967; U0003